=== PATIENT | female | born 1965 | race Two or more races ===

== ENCOUNTER 2017-02-24 08:56 | Inpatient (IN) | payer MEDICAID ==
[~2017-02-24] VITALS: Ht 154.9 cm; Wt 102.0 kg
[~2017-02-24 08:56] MED LIST: METO25TA62 PO
[2017-02-24 10:36] LABS: Albumin 3.4 g/dL (3.4-5.0); Alkaline Phosphatase 85 U/L (45-117); Anion Gap 7 (5-15); Aspartate Aminotransferase 79 U/L (15-37); BUN/Creatinine Ratio 8.7; Bilirubin, Total 1.4 mg/dL (0.2-1.0); Blood Urea Nitrogen 6 mg/dL (7-18); Calcium 8.8 mg/dL (8.5-10.1); Carbon Dioxide 28 mmol/L (21-32); Chloride 102 mmol/L (98-107); GFR African American 115 mL/min; GFR Non-African American 95 mL/min; Glucose 137 mg/dL (74-106); Magnesium 2.1 mg/dL (1.6-2.6); Potassium 3.9 mmol/L (3.5-5.1); Sodium 137 mmol/L (136-145); Total Protein 7.8 g/dL (6.4-8.2)
[2017-02-24 10:37] LABS: Basophils # (auto) 0 uL; Basophils % (auto) 0.4 % (0.0-2.0); Eosinophils # (auto) 0.2 uL; Eosinophils % (auto) 2.2 % (0.0-7.0); Hematocrit 47.2 % (36.0-46.0); Hemoglobin 16.2 g/dL (12.2-16.2); Lymphocytes # (auto) 1.9 uL; Lymphocytes % (auto) 23.7 % (10.0-50.0); Mean Corpuscular Hemoglobin 31.9 pg (28.0-32.0); Mean Corpuscular Hgb Conc. 34.3 g/dL (32.0-36.0); Mean Corpuscular Volume 93.1 fL (80.0-100.0); Mean Platelet Volume 9.2 fL (7.4-10.4); Monocytes # (auto) 0.5 uL; Monocytes % (auto) 6.1 % (0.0-12.0); Neutrophils # (auto) 5.4 uL; Neutrophils % (auto) 67.6 % (37.0-80.0); Platelet Count (auto) 254 10^3/uL (140-450); Red Cell Distribution Width 13.5 % (11.6-16.0); White Blood Cell 8.1 10^3/uL (4.4-10.8)
[2017-02-24] MEDS ORDERED: ASPirin 81 mg TAB PO ONE (10:45)
[2017-02-24] MEDS ORDERED: MORPHINE SULFATE 4 MG/ML SYRG IV ONE (10:45)
[2017-02-24] MEDS ORDERED: ONDANSETRON HCL 4 MG/2 ML VIAL IV ONE (10:45)
[2017-02-24] MEDS ORDERED: cloNIDine HCL 0.1 MG TAB PO ONE (10:45)
[2017-02-24 12:21] LABS: B-Type Natriuretic Peptide 62.02 pg/mL (0-100)
[2017-02-24 12:28] LABS: Temperature: 22.1 C (20.0-25.0)
[2017-02-24] MEDS ORDERED: LORazepam 0.5 MG TAB PO PRN (13:00)
[2017-02-24] MEDS ORDERED: MORPHINE SULF INJ 2 MG/ML SYRINGE 1ML IV PRN ×2 (13:00)
[2017-02-24] MEDS ORDERED: PROMETHAZINE HCL 25 MG/ML 1ML IV PRN (13:00)
[2017-02-24] MEDS ORDERED: NITROGLYCERIN 0.4 MG SL TAB SL PRN (13:00)
[2017-02-24] MEDS ORDERED: ACETAMINOPHEN 500 MG TAB PO PRN (13:00)
[2017-02-24] MEDS ORDERED: TEMAZEPAM 15 MG CAP PO PRN (13:00)
[2017-02-24] MEDS ORDERED: THIAMINE HCL 100 MG/ML 2ML VIAL IV ONE (13:00)
[2017-02-24] MEDS ORDERED: HYDROcodone-ACET 5/325MG TAB PO PRN (13:00)
[2017-02-24] MEDS ORDERED: chlordiazePOXIDE HCL 5 MG CAP PO PRN (13:00)
[2017-02-24] MEDS ORDERED: LACTULOSE 20Gm/30ML SOLN PO PRN (13:00)
[2017-02-24 13:52] LABS: INR 0.98 (0.9-1.15); Partial Thromboplastin Time 27.9 sec (22.64-33.71); Prothrombin Time 10.7 sec (9.37-12.3)
[2017-02-24] MEDS: SODIUM CHLORIDE 0.9% 1,000 ML IV SCH (13:57)
[2017-02-24] MEDS: PANTOPRAZOLE 40 MG TAB PO SCH (14:05)
[2017-02-24] MEDS: ENOXAPARIN SOD 40 MG/0.4 ML SYRINGE SC SCH (14:05)
[2017-02-24] MEDS: NITROGLYCERIN 0.2MG/HR TOPICAL PATCH TD SCH (14:13)
[2017-02-24 17:01] VITALS: BP 137/79
[2017-02-24 17:24] LABS: Urine RBC None Seen /hpf (0 - 4)
[2017-02-24 17:43] LABS: Urine Bilirubin Negative (Negative); Urine Blood Negative /uL (Negative); Urine Color Yellow (Yellow); Urine Glucose Normal (Normal); Urine Ketone Negative (Negative); Urine Nitrite Negative (Negative); Urine Squamous Epithelial Cell FEW /hpf (<5); Urine Urobilinogen Normal (Negative); Urine pH 6.5 (5.0-8.0)
[2017-02-24] MEDS ORDERED: ZOLP10TA PO (17:48)
[2017-02-24] MEDS ORDERED: ALPR1TAB2 PO (17:48)
[2017-02-24 18:30] VITALS: BP 137/79
[2017-02-24 20:00] VITALS: BP 123/77
[2017-02-24 22:00] VITALS: BP 123/77
[2017-02-24] MEDS: METOPROLOL TARTRATE 25 MG TAB PO SCH (22:00)
[2017-02-24] MEDS: ATORVASTATIN 20 MG TAB PO SCH (22:16)
[2017-02-25] VITALS (7 sets, daily range): BP systolic 116–179; BP diastolic 66–97
[2017-02-25] MEDS: SODIUM CHLORIDE 0.9% 1,000 ML IV SCH ×2 (02:00→15:41)
[2017-02-25 06:24] LABS: Cholesterol 185 mg/dL (< 200); HDL Cholesterol 29 mg/dL (40-59); LDL Cholesterol 124 mg/dL (< 100); Triglycerides 226 mg/dL (< 150)
[2017-02-25] MEDS: METOPROLOL TARTRATE 25 MG TAB PO SCH ×3 (10:00→21:34)
[2017-02-25] MEDS: ASPirin 81 mg TAB PO SCH (10:07)
[2017-02-25] MEDS: PANTOPRAZOLE 40 MG TAB PO SCH (10:07)
[2017-02-25] MEDS: ENOXAPARIN SOD 40 MG/0.4 ML SYRINGE SC SCH (10:07)
[2017-02-25] MEDS: THIAMINE HCL 100 MG/ML 2ML VIAL IV SCH (10:09)
[2017-02-25] MEDS: NITROGLYCERIN 0.2MG/HR TOPICAL PATCH TD SCH (10:10)
[2017-02-25] MEDS ORDERED: ENALAPRILAT 1.25 MG/ML-1ML VIAL IV ONE (15:30)
[2017-02-25] MEDS: ATORVASTATIN 20 MG TAB PO SCH (21:34)
[2017-02-25] MEDS: ENALAPRILAT 1.25 MG/ML-1ML VIAL IV PRN (21:35)
[2017-02-26] VITALS (7 sets, daily range): BP systolic 160–189; BP diastolic 65–103
[2017-02-26] MEDS: ENALAPRILAT 1.25 MG/ML-1ML VIAL IV PRN ×4 (03:50→23:40)
[2017-02-26] MEDS: SODIUM CHLORIDE 0.9% 1,000 ML IV SCH ×2 (04:58→18:18)
[2017-02-26 06:30] LABS: BUN/Creatinine Ratio 14.1; Calcium 8.7 mg/dL (8.5-10.1); Potassium 4.1 mmol/L (3.5-5.1)
[2017-02-26] MEDS: METOPROLOL TARTRATE 25 MG TAB PO SCH ×2 (10:00→21:39)
[2017-02-26] MEDS: PANTOPRAZOLE 40 MG TAB PO SCH (10:09)
[2017-02-26] MEDS: THIAMINE HCL 100 MG/ML 2ML VIAL IV SCH (10:10)
[2017-02-26] MEDS: ASPirin 81 mg TAB PO SCH (10:10)
[2017-02-26] MEDS: ENOXAPARIN SOD 40 MG/0.4 ML SYRINGE SC SCH (10:10)
[2017-02-26] MEDS: NITROGLYCERIN 0.2MG/HR TOPICAL PATCH TD SCH (10:11)
[2017-02-26] MEDS ORDERED: NIFEdipine ER 30 MG TAB PO ONE (19:30)
[2017-02-26] MEDS: ATORVASTATIN 20 MG TAB PO SCH (21:38)
[2017-02-27 05:35] VITALS: BP 136/99
[2017-02-27 05:45] VITALS: BP 161/89
[2017-02-27 09:00] VITALS: BP 154/98
[2017-02-27] MEDS ORDERED: NIFEdipine ER 30 MG TAB PO SCH (10:00)
[2017-02-27] MEDS: PANTOPRAZOLE 40 MG TAB PO SCH (10:50)
[2017-02-27] MEDS: THIAMINE HCL 100 MG/ML 2ML VIAL IV SCH (10:50)
[2017-02-27] MEDS: ASPirin 81 mg TAB PO SCH (10:51)
[2017-02-27] MEDS: METOPROLOL TARTRATE 25 MG TAB PO SCH (10:51)
[2017-02-27] MEDS: ENOXAPARIN SOD 40 MG/0.4 ML SYRINGE SC SCH (10:51)
[2017-02-27] MEDS: NITROGLYCERIN 0.2MG/HR TOPICAL PATCH TD SCH (10:52)
[2017-02-27 13:00] VITALS: BP 114/87
[2017-02-27 13:27] VITALS: BP 154/98
== END 2017-02-27 15:11 | disposition home or self-care (01) | DRG 199 ==
LOC: ER 08:56 → TELE 08:57 → TELE-E-ADS 16:49 → TELE-CENTR 19:05
PROVIDERS: ADMIT Internal Medicine; ATTEND Internal Medicine
DX: I10 Essential (primary) hypertension (principal); Z68.41 Body mass index [BMI] 40.0-44.9, adult; E66.01 Morbid (severe) obesity due to excess calories; Z86.73 Personal history of transient ischemic attack (TIA), and cerebral infarction without residual deficits; Z82.0 Family history of epilepsy and other diseases of the nervous system; Z82.49 Family history of ischemic heart disease and other diseases of the circulatory system; Z83.3 Family history of diabetes mellitus; Z91.14 Patient's other noncompliance with medication regimen; R07.89 Other chest pain; Z90.49 Acquired absence of other specified parts of digestive tract; Z71.89 Other specified counseling; Z80.0 Family history of malignant neoplasm of digestive organs; R42 Dizziness and giddiness; F41.9 Anxiety disorder, unspecified; J32.0 Chronic maxillary sinusitis
CPT/HCPCS: 36415; 70450; 71020; 80048; 80053; 80061; 80307; 81001; 82550; 82607; 82746; 83735; 83880; 84443; 84484; 85025; 85379; 85610; 85652; 85730; 86141; 93005; 93306; 93886; 93971; 96374; 99291; J2405

== ENCOUNTER 2019-06-29 23:22 | Emergency (ER) | payer MEDICAID ==
[~2019-06-29] VITALS: Ht 154.9 cm; Wt 113.4 kg
[~2019-06-29 23:22] MED LIST changes: +ALPR1TAB2 PO; -METO25TA62 PO; +ZOLP10TA PO
[2019-06-29] MEDS ORDERED: cloNIDine HCL 0.1 MG TAB ONE (23:36)
[2019-06-30] MEDS ORDERED: cloNIDine HCL 0.1 MG TAB PO ONE
[2019-06-30 00:23] LABS: Basophils # (auto) 0.1 uL; Basophils % (auto) 0.8 % (0.0-2.0); Eosinophils # (auto) 0.1 uL; Eosinophils % (auto) 1.8 % (0.0-7.0); Hemoglobin 16.9 g/dL (12.2-16.2); Lymphocytes # (auto) 2.5 uL; Lymphocytes % (auto) 33.8 % (10.0-50.0); Mean Corpuscular Hemoglobin 33.5 pg (28.0-32.0); Mean Corpuscular Hgb Conc. 34.5 g/dL (32.0-36.0); Monocytes # (auto) 0.4 uL; Monocytes % (auto) 5.9 % (0.0-12.0); Neutrophils # (auto) 4.3 uL; Neutrophils % (auto) 57.7 % (37.0-80.0); Nucleated Red Blood Cells % 0.1 %; Platelet Count (auto) 233 10^3/uL (140-450); Red Blood Cells 5.05 10^6/uL (4.0-5.20); Red Cell Distribution Width 13.3 % (11.8-14.3); White Blood Cell 7.4 10^3/uL (4.4-10.8)
[2019-06-30 00:39] LABS: INR 0.95 (0.9-1.15); Partial Thromboplastin Time 26.1 sec (23.64-32.05)
[2019-06-30] MEDS ORDERED: ASPirin 81 mg TAB PO ONE (00:45)
[2019-06-30 00:56] LABS: Potassium 3.9 mmol/L (3.5-5.1); Sodium 137 mmol/L (136-145)
[2019-06-30 00:57] LABS: Alkaline Phosphatase 90 U/L (45-117); Anion Gap 14 (5-15); BUN/Creatinine Ratio 12.9; Blood Urea Nitrogen 9 mg/dL (7-18); Carbon Dioxide 20 mmol/L (21-32); Chloride 103 mmol/L (98-107); GFR African American 112 mL/min; GFR Non-African American 93 mL/min; Glucose 135 mg/dL (74-106)
[2019-06-30 00:58] LABS: Alanine Aminotransferase 58 U/L (13-56); Albumin 3.2 g/dL (3.4-5.0); Aspartate Aminotransferase 68 U/L (15-37); Bilirubin, Total 0.7 mg/dL (0.2-1.0); Calcium 8.8 mg/dL (8.5-10.1); Magnesium 2.1 mg/dL (1.6-2.6); Total Protein 8.1 g/dL (6.4-8.2)
[2019-06-30 02:46] LABS: Urine Bacteria NONE SEEN /hpf (None Seen); Urine Blood Negative /uL (Negative); Urine Specific Gravity 1.011 (1.001-1.035); Urine WBC <1 /hpf (0 - 5)
[2019-06-30 03:32] LABS: Amphetamine Screen, Urine NEGATIVE (NEGATIVE); Barbiturate Scree,Urine NEGATIVE (NEGATIVE); Benzodiazephine Screen, Urine NEGATIVE (NEGATIVE); Cannabinoid Screen, Urine POSITIVE (NEGATIVE); Cocaine Screen, Urine NEGATIVE (NEGATIVE); Opiate Scree,Urine NEGATIVE (NEGATIVE); Phencyclidine Screen, Urine NEGATIVE (NEGATIVE)
[2019-06-30] MEDS ORDERED: LABETALOL HCL 5 MG/ML ML 20ML VIAL IV ONE (08:00)
[2019-06-30] MEDS ORDERED: hydrALAZINE HCL 20 MG/ML VL IV ONE (08:00)
[2019-06-30 14:29] VITALS: BP 155/100
== END 2019-06-30 17:27 | disposition home or self-care (01) ==
LOC: ER 23:29
DX: R07.9 Chest pain, unspecified (principal); I10 Essential (primary) hypertension; F10.10 Alcohol abuse, uncomplicated; F12.90 Cannabis use, unspecified, uncomplicated; R74.8 Abnormal levels of other serum enzymes; E46 Unspecified protein-calorie malnutrition; R73.9 Hyperglycemia, unspecified; J45.909 Unspecified asthma, uncomplicated; Z86.73 Personal history of transient ischemic attack (TIA), and cerebral infarction without residual deficits; Z90.49 Acquired absence of other specified parts of digestive tract; Z79.899 Other long term (current) drug therapy; Z53.29 Procedure and treatment not carried out because of patient's decision for other reasons
CPT/HCPCS: 36415; 71046; 80053; 80307; 81001; 83735; 84484; 85025; 85610; 85730; 93005; 94761; 96374; 96375; 99284; J0360

== ENCOUNTER 2019-12-29 16:31 | Inpatient (IN) | payer MEDICAID ==
[~2019-12-29] VITALS: Ht 154.9 cm; Wt 105.0 kg
[2019-12-29 17:16] LABS: Eosinophils # (auto) 0.1 10 ^3/uL (0-0.8); Monocytes # (auto) 0.4 10 ^3/uL (0-1.3)
[2019-12-29 17:32] LABS: Hemoglobin 16.3 g/dL (12.2-16.2); White Blood Cell 8.7 10^3/uL (4.4-10.8)
[2019-12-29 17:33] LABS: Albumin 3.5 g/dL (3.4-5.0); Anion Gap 11 (5-15); BUN/Creatinine Ratio 20.7; Blood Urea Nitrogen 12 mg/dL (7-18); Calcium 9.3 mg/dL (8.5-10.1); Carbon Dioxide 20 mmol/L (21-32); Chloride 102 mmol/L (98-107); GFR African American 139 mL/min; GFR Non-African American 115 mL/min; Glucose 138 mg/dL (74-106); Potassium 3.3 mmol/L (3.5-5.1); Sodium 133 mmol/L (136-145)
[2019-12-29 17:34] LABS: Basophils # (auto) 0.1 10 ^3/uL (0-0.2); Basophils % (auto) 0.6 % (0.0-2.0); Eosinophils % (auto) 1.4 % (0.0-7.0); Hematocrit 45.2 % (36.0-46.0); Lymphocytes # (auto) 1.8 10 ^3/uL (0.4-5.4); Lymphocytes % (auto) 20.3 % (10.0-50.0); Mean Corpuscular Hemoglobin 35.2 pg (28.0-32.0); Mean Corpuscular Hgb Conc. 36.1 g/dL (32.0-36.0); Mean Corpuscular Volume 97.5 fL (80.0-100.0); Monocytes % (auto) 4.6 % (0.0-12.0); Neutrophils # (auto) 6.4 10 ^3/uL (1.6-8.6); Neutrophils % (auto) 73.1 % (37.0-80.0); Nucleated Red Blood Cells % 0.1 %; Platelet Count (auto) 233 10^3/uL (140-450); Red Blood Cells 4.64 10^6/uL (4.0-5.20); Red Cell Distribution Width 12.8 % (11.8-14.3)
[2019-12-29 17:42] LABS: Alanine Aminotransferase 45 U/L (13-56); Alkaline Phosphatase 88 U/L (45-117); Aspartate Aminotransferase 38 U/L (15-37); Bilirubin, Total 1.3 mg/dL (0.2-1.0); Total Protein 8.2 g/dL (6.4-8.2)
[2019-12-29] MEDS ORDERED: ONDANSETRON HCL 4 MG/2 ML VIAL IV ONE (18:30)
[2019-12-29] MEDS ORDERED: MORPHINE SULF INJ 2 MG/ML SYRINGE 1ML IV ONE (18:30)
[2019-12-29] MEDS ORDERED: ASPirin 81 mg TAB PO ONE ×2 (18:30→19:15)
[2019-12-29] MEDS ORDERED: diphenhdrAMINE HCL 50 MG/1 ML VL IV ONE (19:30)
[2019-12-29 19:42] LABS: INR 1.05 (0.9-1.15); Partial Thromboplastin Time 27.8 sec (23.64-32.05)
[2019-12-29] MEDS ORDERED: cloNIDine HCL 0.1 MG TAB PO ONE (20:30)
[2019-12-29] MEDS ORDERED: cloNIDine HCL 0.1 MG TAB PO PRN (21:00)
[2019-12-29] MEDS ORDERED: ALBUTEROL SULF 2.5 MG/0.5ML(0.5%) NEB SOLN NEB PRN (21:00)
[2019-12-29] MEDS ORDERED: IPRATROPIUM BROM 0.5 MG/2.5ML INH SOL NEB PRN (21:00)
[2019-12-29] MEDS ORDERED: DEXTROSE (50%) 50ML SYRG IV PRN (21:00)
[2019-12-29] MEDS ORDERED: NITROGLYCERIN 0.4 MG SL TAB SL PRN (21:00)
[2019-12-29] MEDS ORDERED: MORPHINE SULF INJ 2 MG/ML SYRINGE 1ML IV PRN (21:00)
[2019-12-29] MEDS ORDERED: cefTRIAXone 1GM/50ML D5W 50 ML IV SCH (21:00)
[2019-12-29] MEDS ORDERED: MORPHINE SULFATE 4 MG/ML SYR/VIAL IV PRN (21:00)
[2019-12-29] MEDS ORDERED: POTASSIUM CHL 20MEQ/100ML 100 ML IV ONE (21:15)
[2019-12-29] MEDS: CARVEDILOL 3.125 MG TAB PO SCH (21:50)
[2019-12-29 22:57] VITALS: BP 163/104
[2019-12-29 22:58] VITALS: BP 172/95
[2019-12-29 23:00] VITALS: BP 163/104
[2019-12-29] MEDS: ACCU-CHEK COMFORT CURVE STRIP VI SCH (23:39)
[2019-12-29] MEDS: InsuLIN REG 1unit/0.01ml Soln (100units/ml) SC SCH (23:40)
[2019-12-30] MEDS: ZOLPIDEM TARTRATE 5 MG TAB PO PRN ×2 (00:45→21:45)
[2019-12-30] MEDS: HYDROcodone-ACET 5/325MG TAB PO PRN ×3 (00:46→20:06)
[2019-12-30] MEDS: ACCU-CHEK COMFORT CURVE STRIP VI SCH ×3 (03:54→11:27)
[2019-12-30] MEDS: InsuLIN REG 1unit/0.01ml Soln (100units/ml) SC SCH ×3 (03:55→11:27)
[2019-12-30 05:33] VITALS: BP 167/102
[2019-12-30 06:37] LABS: Hemoglobin 15.2 g/dL (12.2-16.2); Lymphocytes # (auto) 1.5 10 ^3/uL (0.4-5.4); Mean Corpuscular Hgb Conc. 35.3 g/dL (32.0-36.0); Monocytes # (auto) 0.5 10 ^3/uL (0-1.3); Monocytes % (auto) 6.1 % (0.0-12.0)
[2019-12-30 06:40] LABS: Basophils # (auto) 0.1 10 ^3/uL (0-0.2); Basophils % (auto) 0.7 % (0.0-2.0); Eosinophils # (auto) 0.3 10 ^3/uL (0-0.8); Eosinophils % (auto) 3.1 % (0.0-7.0); Hematocrit 43.1 % (36.0-46.0); Mean Corpuscular Hemoglobin 34.5 pg (28.0-32.0); Mean Corpuscular Volume 97.8 fL (80.0-100.0); Neutrophils # (auto) 6.2 10 ^3/uL (1.6-8.6); Neutrophils % (auto) 72.1 % (37.0-80.0); Nucleated Red Blood Cells % 0.1 %; Platelet Count (auto) 217 10^3/uL (140-450); Red Blood Cells 4.41 10^6/uL (4.0-5.20); Red Cell Distribution Width 12.7 % (11.8-14.3); White Blood Cell 8.6 10^3/uL (4.4-10.8)
[2019-12-30 06:52] LABS: Potassium 3.2 mmol/L (3.5-5.1)
[2019-12-30 07:17] LABS: BUN/Creatinine Ratio 22.4; Calcium 9.2 mg/dL (8.5-10.1)
[2019-12-30 09:00] VITALS: BP 142/87
[2019-12-30] MEDS: ASPirin 81 mg TAB PO SCH (09:40)
[2019-12-30] MEDS: LISINOPRIL 20 MG TAB PO SCH (09:40)
[2019-12-30] MEDS: CARVEDILOL 3.125 MG TAB PO SCH ×2 (09:40→21:13)
[2019-12-30] MEDS ORDERED: CLOPIDOGREL BISULFATE 75 MG TAB PO SCH (10:00)
[2019-12-30] MEDS ORDERED: diphenhdrAMINE HCL 50 MG/1 ML VL IV ONE (12:00)
[2019-12-30 13:00] VITALS: BP 106/67
[2019-12-30] MEDS ORDERED: POTASSIUM CHL 20 Meq TABLET PO ONE (15:00)
[2019-12-30] MEDS ORDERED: MORPHINE SULF INJ 2 MG/ML SYRINGE 1ML IV PRN (15:00)
[2019-12-30 16:50] VITALS: BP 122/70
[2019-12-30] MEDS: ATORVASTATIN 20 MG TAB PO SCH (17:53)
[2019-12-30] MEDS: AMOXICILLIN/CLAVUL 875 MG TAB PO SCH (21:12)
[2019-12-30] MEDS: diphenhdrAMINE HCL 25 MG CAP PO PRN (21:45)
[2019-12-30 22:00] VITALS: BP 142/82
[2019-12-31] VITALS (8 sets, daily range): BP systolic 132–180; BP diastolic 70–116
[2019-12-31] MEDS: LORazepam 0.5 MG TAB PO PRN ×2 (02:55→20:40)
[2019-12-31] MEDS: HYDROcodone-ACET 5/325MG TAB PO PRN ×5 (02:56→22:18)
[2019-12-31 05:44] LABS: Magnesium 2.1 mg/dL (1.6-2.6); Potassium 3.8 mmol/L (3.5-5.1)
[2019-12-31] MEDS ORDERED: ADENOSINE 90 MG in GIVE UN-DILUTED 0 ML IV STA (08:27)
[2019-12-31] MEDS: diphenhdrAMINE HCL 25 MG CAP PO PRN ×3 (08:45→22:19)
[2019-12-31] MEDS: CARVEDILOL 3.125 MG TAB PO SCH ×2 (11:08→21:31)
[2019-12-31] MEDS: LISINOPRIL 20 MG TAB PO SCH (11:08)
[2019-12-31] MEDS: ASPirin 81 mg TAB PO SCH (11:08)
[2019-12-31] MEDS: AMOXICILLIN/CLAVUL 875 MG TAB PO SCH ×2 (11:08→21:29)
[2019-12-31] MEDS ORDERED: HAL5T PO (11:57)
[2019-12-31] MEDS ORDERED: METO25TA5 PO (11:57)
[2019-12-31] MEDS ORDERED: SIMV-8 PO (11:57)
[2019-12-31] MEDS ORDERED: HCTZ25T PO (11:57)
[2019-12-31] MEDS ORDERED: OMEP20TA PO (11:57)
[2019-12-31] MEDS ORDERED: CHOL20007 PO (11:57)
[2019-12-31] MEDS ORDERED: METF-370 PO (11:57)
[2019-12-31] MEDS ORDERED: LOSA-69 PO (11:57)
[2019-12-31] MEDS ORDERED: LEVOTHYROXINE SODIUM 50 MCG TAB PO ONE (13:00)
[2019-12-31] MEDS ORDERED: HCTZ 25 MG TAB PO ONE (13:00)
[2019-12-31] MEDS ORDERED: LOSARTAN POTASSIUM 50 MG TAB PO ONE (13:00)
[2019-12-31 13:15] LABS: Free T4 (Free Thyroxine) 1.05 ng/dL (0.89-1.76)
[2019-12-31 13:36] LABS: Free T3 3.25 pg/mL (2.3-4.2)
[2019-12-31] MEDS: hydrALAZINE HCL 20 MG/ML VL IV PRN (16:00)
[2019-12-31] MEDS: ATORVASTATIN 20 MG TAB PO SCH (17:25)
[2019-12-31] MEDS: HYDROCORTONE 1% TOPICAL CREAM 30 GM TUBE TOP PRN (18:38)
[2019-12-31 18:43] LABS: Urine WBC None Seen /hpf (0 - 5)
[2019-12-31 18:52] LABS: Urine Bacteria NONE SEEN /hpf (None Seen); Urine Blood Negative /uL (Negative); Urine Specific Gravity 1.011 (1.001-1.035)
[2019-12-31] MEDS ORDERED: HYDROCORTONE 1% TOPICAL CREAM 30 GM TUBE TOP SCH (22:00)
[2019-12-31] MEDS: ZOLPIDEM TARTRATE 5 MG TAB PO PRN (22:18)
[2020-01-01] VITALS (7 sets, daily range): BP systolic 100–163; BP diastolic 67–107
[2020-01-01] MEDS: hydrALAZINE HCL 20 MG/ML VL IV PRN (01:46)
[2020-01-01] MEDS: HYDROcodone-ACET 5/325MG TAB PO PRN ×2 (02:27→15:33)
[2020-01-01] MEDS: HYDROCORTONE 1% TOPICAL CREAM 30 GM TUBE TOP PRN ×2 (02:42→15:33)
[2020-01-01] MEDS: LEVOTHYROXINE SODIUM 50 MCG TAB PO SCH (06:42)
[2020-01-01] MEDS: AMOXICILLIN/CLAVUL 875 MG TAB PO SCH ×2 (10:08→21:32)
[2020-01-01] MEDS: ASPirin 81 mg TAB PO SCH (10:10)
[2020-01-01] MEDS: ONDANSETRON HCL 4 MG/2 ML VIAL IV PRN ×2 (10:12→18:50)
[2020-01-01] MEDS: HCTZ 25 MG TAB PO SCH (10:13)
[2020-01-01] MEDS: CARVEDILOL 3.125 MG TAB PO SCH ×2 (10:14→21:35)
[2020-01-01] MEDS: LOSARTAN POTASSIUM 50 MG TAB PO SCH (10:16)
[2020-01-01] MEDS: ATORVASTATIN 20 MG TAB PO SCH (18:28)
[2020-01-01] MEDS: LORazepam 0.5 MG TAB PO PRN (20:41)
[2020-01-01] MEDS: ZOLPIDEM TARTRATE 5 MG TAB PO PRN (21:32)
[2020-01-02] VITALS (8 sets, daily range): BP systolic 129–159; BP diastolic 75–95
[2020-01-02] MEDS ORDERED: SODIUM CHLORIDE 0.9% 1,000 ML IV SCH (00:01)
[2020-01-02 05:28] LABS: Basophils # (auto) 0.1 10 ^3/uL (0-0.2); Basophils % (auto) 0.7 % (0.0-2.0); Eosinophils # (auto) 0.3 10 ^3/uL (0-0.8); Eosinophils % (auto) 2.4 % (0.0-7.0); Hematocrit 43.8 % (36.0-46.0); Lymphocytes # (auto) 1.3 10 ^3/uL (0.4-5.4); Lymphocytes % (auto) 11.3 % (10.0-50.0); Mean Corpuscular Hgb Conc. 34.1 g/dL (32.0-36.0); Mean Corpuscular Volume 99.7 fL (80.0-100.0); Monocytes # (auto) 0.7 10 ^3/uL (0-1.3); Monocytes % (auto) 5.6 % (0.0-12.0); Neutrophils # (auto) 9.4 10 ^3/uL (1.6-8.6); Platelet Count (auto) 234 10^3/uL (140-450); Red Cell Distribution Width 12.7 % (11.8-14.3); White Blood Cell 11.7 10^3/uL (4.4-10.8)
[2020-01-02 05:49] LABS: Calcium 9.4 mg/dL (8.5-10.1); INR 1.03 (0.9-1.15); Partial Thromboplastin Time 27.6 sec (23.64-32.05); Potassium 3.4 mmol/L (3.5-5.1)
[2020-01-02 05:51] LABS: BUN/Creatinine Ratio 16.7
[2020-01-02] MEDS: LORazepam 0.5 MG TAB PO PRN (07:19)
[2020-01-02] MEDS: LEVOTHYROXINE SODIUM 50 MCG TAB PO SCH (07:19)
[2020-01-02] MEDS: ONDANSETRON HCL 4 MG/2 ML VIAL IV PRN (08:09)
[2020-01-02] MEDS ORDERED: LIDOCAINE 2%HCL (LOCAL ANESTH.) INJ 20ML MDV ONE (08:36)
[2020-01-02] MEDS ORDERED: IODIXANOL 320MG/ML 100ML BTL IV ONE ×2 (08:36→10:09)
[2020-01-02] MEDS ORDERED: ANGIOMAX 250 MG VIAL IV ONE (08:59)
[2020-01-02] MEDS ORDERED: HEPARIN SODIUM (PORCINE) 5000 UNITS/ML 1ML VIAL ONE (08:59)
[2020-01-02] MEDS ORDERED: VERAPAMIL 2.5MG/ML INJ 2ML VIAL IV ONE (08:59)
[2020-01-02] MEDS ORDERED: fentaNYL CITRATE 100 MCG/2 ML VL ONE (09:00)
[2020-01-02] MEDS ORDERED: MIDAZOLAM HCL 1MG/1ML-2 ML VIAL ONE (09:00)
[2020-01-02] MEDS ORDERED: diphenhdrAMINE HCL 50 MG/1 ML VL ONE (09:27)
[2020-01-02] MEDS ORDERED: SODIUM CHL 0.9% 0 ML ONE (10:10)
[2020-01-02] MEDS: LOSARTAN POTASSIUM 50 MG TAB PO SCH (12:35)
[2020-01-02] MEDS: HCTZ 25 MG TAB PO SCH (12:36)
[2020-01-02] MEDS: CARVEDILOL 3.125 MG TAB PO SCH ×2 (12:36→22:02)
[2020-01-02] MEDS: AMOXICILLIN/CLAVUL 875 MG TAB PO SCH ×2 (12:37→22:00)
[2020-01-02] MEDS: ASPirin 81 mg TAB PO SCH (12:37)
[2020-01-02] MEDS ORDERED: DEXTROSE (50%) 50ML SYRG IV PRN (13:00)
[2020-01-02] MEDS ORDERED: POTASSIUM CHL 20 Meq TABLET PO ONE (13:00)
[2020-01-02] MEDS: HYDROcodone-ACET 5/325MG TAB PO PRN ×2 (15:27→22:19)
[2020-01-02] MEDS: ACCU-CHEK COMFORT CURVE STRIP VI SCH ×2 (17:58→22:18)
[2020-01-02] MEDS: ATORVASTATIN 20 MG TAB PO SCH (17:58)
[2020-01-02] MEDS: InsuLIN REG 1unit/0.01ml Soln (100units/ml) SC SCH ×2 (18:21→22:00)
[2020-01-02] MEDS: HYDROCORTONE 1% TOPICAL CREAM 30 GM TUBE TOP PRN (20:00)
[2020-01-02] MEDS: diphenhdrAMINE HCL 25 MG CAP PO PRN (20:00)
[2020-01-02] MEDS ORDERED: ATORVASTATIN 20 MG TAB PO SCH (22:00)
[2020-01-02] MEDS: ZOLPIDEM TARTRATE 5 MG TAB PO PRN (22:00)
[2020-01-03 04:52] VITALS: BP 143/85
[2020-01-03 06:00] LABS: Basophils # (auto) 0 10 ^3/uL (0-0.2); Basophils % (auto) 0.5 % (0.0-2.0); Eosinophils # (auto) 0.3 10 ^3/uL (0-0.8); Hematocrit 43.4 % (36.0-46.0); Lymphocytes # (auto) 1.5 10 ^3/uL (0.4-5.4); Lymphocytes % (auto) 14.2 % (10.0-50.0); Mean Corpuscular Hemoglobin 34.7 pg (28.0-32.0); Mean Corpuscular Hgb Conc. 34.7 g/dL (32.0-36.0); Monocytes # (auto) 0.9 10 ^3/uL (0-1.3); Monocytes % (auto) 8.4 % (0.0-12.0); Neutrophils # (auto) 7.6 10 ^3/uL (1.6-8.6); Neutrophils % (auto) 73.9 % (37.0-80.0); Platelet Count (auto) 215 10^3/uL (140-450); Red Blood Cells 4.34 10^6/uL (4.0-5.20); Red Cell Distribution Width 12.7 % (11.8-14.3); White Blood Cell 10.3 10^3/uL (4.4-10.8)
[2020-01-03 06:17] LABS: BUN/Creatinine Ratio 19.4; Calcium 9.3 mg/dL (8.5-10.1); Magnesium 2.3 mg/dL (1.6-2.6); Potassium 3.5 mmol/L (3.5-5.1)
[2020-01-03] MEDS: LEVOTHYROXINE SODIUM 50 MCG TAB PO SCH (06:19)
[2020-01-03] MEDS: ACCU-CHEK COMFORT CURVE STRIP VI SCH ×4 (06:19→22:00)
[2020-01-03] MEDS: InsuLIN REG 1unit/0.01ml Soln (100units/ml) SC SCH ×4 (06:19→22:00)
[2020-01-03 09:00] VITALS: BP 137/86
[2020-01-03] MEDS: ONDANSETRON HCL 4 MG/2 ML VIAL IV PRN (09:03)
[2020-01-03] MEDS: DOCUSATE SOD 100 MG CAP PO PRN (09:03)
[2020-01-03] MEDS ORDERED: ASPirin 81 mg TAB PO SCH (10:00)
[2020-01-03] MEDS: CLOPIDOGREL BISULFATE 75 MG TAB PO SCH (10:01)
[2020-01-03] MEDS: LOSARTAN POTASSIUM 50 MG TAB PO SCH (10:01)
[2020-01-03] MEDS: AMOXICILLIN/CLAVUL 875 MG TAB PO SCH ×2 (10:02→22:45)
[2020-01-03] MEDS: HCTZ 25 MG TAB PO SCH (10:02)
[2020-01-03] MEDS: CARVEDILOL 3.125 MG TAB PO SCH ×2 (10:03→22:46)
[2020-01-03] MEDS: ASPirin 81 mg TAB PO SCH (10:03)
[2020-01-03] MEDS ORDERED: POTASSIUM CHL 20 Meq TABLET PO ONE (11:30)
[2020-01-03 11:45] LABS: INR 1.01 (0.9-1.15); Partial Thromboplastin Time 27.2 sec (23.64-32.05)
[2020-01-03] MEDS: HYDROcodone-ACET 5/325MG TAB PO PRN ×2 (11:53→22:46)
[2020-01-03 13:00] VITALS: BP 138/94
[2020-01-03 16:56] VITALS: BP 107/67
[2020-01-03] MEDS: ATORVASTATIN 20 MG TAB PO SCH (17:42)
[2020-01-03 22:00] VITALS: BP 111/68
[2020-01-04] MEDS ORDERED: SODIUM CHLORIDE 0.9% 1,000 ML IV SCH (00:01)
[2020-01-04 05:00] VITALS: BP 135/77
[2020-01-04 05:44] LABS: Basophils # (auto) 0.1 10 ^3/uL (0-0.2); Eosinophils # (auto) 0.3 10 ^3/uL (0-0.8); Hemoglobin 15.2 g/dL (12.2-16.2); Monocytes # (auto) 0.7 10 ^3/uL (0-1.3); Monocytes % (auto) 6.9 % (0.0-12.0); Nucleated Red Blood Cells % 0.4 %
[2020-01-04 05:45] LABS: Basophils % (auto) 0.8 % (0.0-2.0); Eosinophils % (auto) 2.8 % (0.0-7.0); Lymphocytes # (auto) 1.5 10 ^3/uL (0.4-5.4); Lymphocytes % (auto) 14.8 % (10.0-50.0); Mean Corpuscular Hemoglobin 34.7 pg (28.0-32.0); Mean Corpuscular Hgb Conc. 35.3 g/dL (32.0-36.0); Mean Corpuscular Volume 98.2 fL (80.0-100.0); Neutrophils # (auto) 7.8 10 ^3/uL (1.6-8.6); Neutrophils % (auto) 74.7 % (37.0-80.0); Platelet Count (auto) 233 10^3/uL (140-450); Red Blood Cells 4.38 10^6/uL (4.0-5.20); Red Cell Distribution Width 12.7 % (11.8-14.3); White Blood Cell 10.4 10^3/uL (4.4-10.8)
[2020-01-04 05:59] LABS: INR 1.05 (0.9-1.15); Partial Thromboplastin Time 26.2 sec (23.64-32.05)
[2020-01-04 06:01] LABS: Calcium 9.8 mg/dL (8.5-10.1)
[2020-01-04 06:03] LABS: BUN/Creatinine Ratio 20.5
[2020-01-04] MEDS: ACCU-CHEK COMFORT CURVE STRIP VI SCH ×4 (06:54→22:07)
[2020-01-04] MEDS: InsuLIN REG 1unit/0.01ml Soln (100units/ml) SC SCH ×4 (06:55→21:54)
[2020-01-04] MEDS: LEVOTHYROXINE SODIUM 50 MCG TAB PO SCH (06:56)
[2020-01-04] MEDS ORDERED: LIDOCAINE 2%HCL (LOCAL ANESTH.) INJ 20ML MDV ONE (07:15)
[2020-01-04] MEDS ORDERED: IOHEXOL 350 MG/ML 100ML IJ ONE ×2 (07:15→09:30)
[2020-01-04] MEDS ORDERED: ANGIOMAX 250 MG VIAL IV ONE ×2 (07:30→09:26)
[2020-01-04] MEDS ORDERED: fentaNYL CITRATE 100 MCG/2 ML VL ONE (07:30)
[2020-01-04] MEDS ORDERED: EPINEPHrine HCL 1 MG/10 ML SYRG ONE (07:31)
[2020-01-04] MEDS ORDERED: MIDAZOLAM HCL 1MG/1ML-2 ML VIAL ONE ×2 (07:31→09:10)
[2020-01-04] MEDS ORDERED: SODIUM CHL 0.9% 50 ML ONE ×2 (07:31→09:26)
[2020-01-04] MEDS ORDERED: HEPARIN SODIUM (PORCINE) 5000 UNITS/ML 1ML VIAL ONE (07:32)
[2020-01-04] MEDS ORDERED: VERAPAMIL 2.5MG/ML INJ 2ML VIAL IV ONE (07:32)
[2020-01-04] MEDS ORDERED: diphenhdrAMINE HCL 50 MG/1 ML VL ONE (08:20)
[2020-01-04] MEDS ORDERED: ATROPINE SULF 1 MG/10ml SYR ONE (08:49)
[2020-01-04] MEDS ORDERED: ASPirin 81 mg TAB ONE (09:45)
[2020-01-04] MEDS ORDERED: CLOPIDOGREL 300 MG TAB ONE (09:45)
[2020-01-04] MEDS: CLOPIDOGREL BISULFATE 75 MG TAB PO SCH (10:00)
[2020-01-04] MEDS: CARVEDILOL 3.125 MG TAB PO SCH ×2 (10:00→21:41)
[2020-01-04] MEDS: HCTZ 25 MG TAB PO SCH (10:00)
[2020-01-04] MEDS: LOSARTAN POTASSIUM 50 MG TAB PO SCH (10:00)
[2020-01-04] MEDS: ASPirin 81 mg TAB PO SCH (10:00)
[2020-01-04] MEDS: AMOXICILLIN/CLAVUL 875 MG TAB PO SCH ×2 (10:00→21:40)
[2020-01-04] MEDS: ACETAMINOPHEN 325 MG TAB PO PRN (11:16)
[2020-01-04 13:00] VITALS: BP 137/88
[2020-01-04] MEDS ORDERED: FAMOTIDINE 20 MG TAB PO ONE (13:30)
[2020-01-04] MEDS: ALUM & MAG HYDROX-SIMETH LIQ(MAALOX) 30 ML PO PRN (14:23)
[2020-01-04 16:30] VITALS: BP 133/79
[2020-01-04] MEDS: ATORVASTATIN 20 MG TAB PO SCH (17:37)
[2020-01-04] MEDS: HYDROcodone-ACET 5/325MG TAB PO PRN (20:16)
[2020-01-04] MEDS ORDERED: LORazepam 2MG/ML-1ML VIAL IV PRN (21:15)
[2020-01-04 21:38] VITALS: BP 141/90
[2020-01-04] MEDS: ZOLPIDEM TARTRATE 5 MG TAB PO PRN (21:51)
[2020-01-04 22:38] VITALS: BP 141/90
[2020-01-05 04:50] VITALS: BP 157/77
[2020-01-05] MEDS: hydrALAZINE HCL 20 MG/ML VL IV PRN (05:03)
[2020-01-05 06:03] LABS: Basophils # (auto) 0.1 10 ^3/uL (0-0.2); Lymphocytes # (auto) 1.3 10 ^3/uL (0.4-5.4); Monocytes # (auto) 0.8 10 ^3/uL (0-1.3); Monocytes % (auto) 8.3 % (0.0-12.0); Neutrophils # (auto) 7.1 10 ^3/uL (1.6-8.6); Nucleated Red Blood Cells % 0.1 %
[2020-01-05 06:06] LABS: Basophils % (auto) 0.6 % (0.0-2.0); Eosinophils # (auto) 0.3 10 ^3/uL (0-0.8); Eosinophils % (auto) 2.9 % (0.0-7.0); Hematocrit 42.3 % (36.0-46.0); Hemoglobin 14.9 g/dL (12.2-16.2); Lymphocytes % (auto) 13.8 % (10.0-50.0); Mean Corpuscular Hemoglobin 34.8 pg (28.0-32.0); Mean Corpuscular Hgb Conc. 35.4 g/dL (32.0-36.0); Mean Corpuscular Volume 98.5 fL (80.0-100.0); Neutrophils % (auto) 74.4 % (37.0-80.0); Platelet Count (auto) 231 10^3/uL (140-450); Red Blood Cells 4.29 10^6/uL (4.0-5.20); Red Cell Distribution Width 12.2 % (11.8-14.3); White Blood Cell 9.6 10^3/uL (4.4-10.8)
[2020-01-05 06:21] LABS: Calcium 9.2 mg/dL (8.5-10.1); Potassium 3.7 mmol/L (3.5-5.1)
[2020-01-05 06:23] LABS: BUN/Creatinine Ratio 17.9
[2020-01-05] MEDS: InsuLIN REG 1unit/0.01ml Soln (100units/ml) SC SCH ×4 (06:33→22:00)
[2020-01-05] MEDS: LEVOTHYROXINE SODIUM 50 MCG TAB PO SCH (06:33)
[2020-01-05] MEDS: ACCU-CHEK COMFORT CURVE STRIP VI SCH ×4 (06:34→21:59)
[2020-01-05 08:00] VITALS: BP 157/77
[2020-01-05 08:04] VITALS: BP 163/106
[2020-01-05] MEDS: ASPirin 81 mg TAB PO SCH (11:48)
[2020-01-05] MEDS: CARVEDILOL 3.125 MG TAB PO SCH ×2 (11:49→21:57)
[2020-01-05] MEDS: LOSARTAN POTASSIUM 50 MG TAB PO SCH (11:49)
[2020-01-05] MEDS: HCTZ 25 MG TAB PO SCH (11:50)
[2020-01-05] MEDS: FAMOTIDINE 20 MG TAB PO SCH (11:50)
[2020-01-05] MEDS: HYDROcodone-ACET 5/325MG TAB PO PRN ×2 (11:51→17:36)
[2020-01-05] MEDS: CLOPIDOGREL BISULFATE 75 MG TAB PO SCH (11:51)
[2020-01-05 12:33] VITALS: BP 161/101
[2020-01-05] MEDS: AMOXICILLIN/CLAVUL 875 MG TAB PO SCH ×2 (12:44→21:17)
[2020-01-05 16:42] VITALS: BP 119/76
[2020-01-05] MEDS: DOCUSATE SOD 100 MG CAP PO PRN ×2 (17:36→21:17)
[2020-01-05] MEDS: ATORVASTATIN 20 MG TAB PO SCH (18:27)
[2020-01-05] MEDS: diphenhdrAMINE HCL 25 MG CAP PO PRN (19:46)
[2020-01-05] MEDS: ZOLPIDEM TARTRATE 5 MG TAB PO PRN (21:59)
[2020-01-05 22:00] VITALS: BP 126/88
[2020-01-06] MEDS: ACETAMINOPHEN 325 MG TAB PO PRN ×2 (02:42→10:25)
[2020-01-06 05:00] VITALS: BP 125/68
[2020-01-06 05:47] LABS: Basophils # (auto) 0.1 10 ^3/uL (0-0.2); Eosinophils # (auto) 0.3 10 ^3/uL (0-0.8); Hemoglobin 14.3 g/dL (12.2-16.2); Red Cell Distribution Width 12.4 % (11.8-14.3)
[2020-01-06 05:51] LABS: Basophils % (auto) 0.7 % (0.0-2.0); Hematocrit 40.5 % (36.0-46.0); Lymphocytes # (auto) 1.3 10 ^3/uL (0.4-5.4); Lymphocytes % (auto) 13.3 % (10.0-50.0); Mean Corpuscular Hemoglobin 34.3 pg (28.0-32.0); Mean Corpuscular Hgb Conc. 35.3 g/dL (32.0-36.0); Mean Corpuscular Volume 97.4 fL (80.0-100.0); Monocytes # (auto) 0.7 10 ^3/uL (0-1.3); Monocytes % (auto) 7.1 % (0.0-12.0); Neutrophils # (auto) 7.6 10 ^3/uL (1.6-8.6); Neutrophils % (auto) 75.9 % (37.0-80.0); Nucleated Red Blood Cells % 0.3 %; Platelet Count (auto) 256 10^3/uL (140-450); Red Blood Cells 4.16 10^6/uL (4.0-5.20)
[2020-01-06] MEDS: InsuLIN REG 1unit/0.01ml Soln (100units/ml) SC SCH ×4 (05:54→21:37)
[2020-01-06] MEDS: ACCU-CHEK COMFORT CURVE STRIP VI SCH ×4 (05:54→21:36)
[2020-01-06] MEDS: LEVOTHYROXINE SODIUM 50 MCG TAB PO SCH (05:54)
[2020-01-06 06:07] LABS: Calcium 9.2 mg/dL (8.5-10.1); Potassium 3.4 mmol/L (3.5-5.1)
[2020-01-06 06:10] LABS: BUN/Creatinine Ratio 20.3
[2020-01-06] MEDS: ONDANSETRON HCL 4 MG/2 ML VIAL IV PRN (08:51)
[2020-01-06 08:56] VITALS: BP 126/72
[2020-01-06] MEDS: ASPirin 81 mg TAB PO SCH (10:22)
[2020-01-06] MEDS: HCTZ 25 MG TAB PO SCH (10:23)
[2020-01-06] MEDS: AMOXICILLIN/CLAVUL 875 MG TAB PO SCH ×2 (10:23→21:36)
[2020-01-06] MEDS: LOSARTAN POTASSIUM 50 MG TAB PO SCH (10:23)
[2020-01-06] MEDS: FAMOTIDINE 20 MG TAB PO SCH (10:23)
[2020-01-06] MEDS: CLOPIDOGREL BISULFATE 75 MG TAB PO SCH (10:23)
[2020-01-06] MEDS: CARVEDILOL 3.125 MG TAB PO SCH ×2 (10:24→21:39)
[2020-01-06] MEDS: LORazepam 0.5 MG TAB PO PRN (10:25)
[2020-01-06] MEDS: DOCUSATE SOD 100 MG CAP PO PRN (10:25)
[2020-01-06] MEDS ORDERED: POTASSIUM CHL 10 Meq TABLET PO ONE (13:00)
[2020-01-06 13:15] VITALS: BP 115/78
[2020-01-06 16:46] VITALS: BP 117/77
[2020-01-06] MEDS: HYDROcodone-ACET 5/325MG TAB PO PRN (16:55)
[2020-01-06] MEDS: ATORVASTATIN 20 MG TAB PO SCH (17:22)
[2020-01-06 22:00] VITALS: BP 117/80
[2020-01-06] MEDS: ZOLPIDEM TARTRATE 5 MG TAB PO PRN (22:26)
[2020-01-07 05:00] VITALS: BP 116/63
[2020-01-07 05:51] LABS: Basophils # (auto) 0.1 10 ^3/uL (0-0.2); Eosinophils # (auto) 0.4 10 ^3/uL (0-0.8); Monocytes # (auto) 0.8 10 ^3/uL (0-1.3); Nucleated Red Blood Cells % 0.1 %
[2020-01-07 05:53] LABS: Basophils % (auto) 0.6 % (0.0-2.0); Eosinophils % (auto) 4.3 % (0.0-7.0); Hematocrit 42.1 % (36.0-46.0); Hemoglobin 14.6 g/dL (12.2-16.2); Lymphocytes # (auto) 1.5 10 ^3/uL (0.4-5.4); Lymphocytes % (auto) 14.7 % (10.0-50.0); Mean Corpuscular Hemoglobin 34.1 pg (28.0-32.0); Mean Corpuscular Hgb Conc. 34.8 g/dL (32.0-36.0); Mean Corpuscular Volume 98.1 fL (80.0-100.0); Monocytes % (auto) 7.4 % (0.0-12.0); Neutrophils # (auto) 7.5 10 ^3/uL (1.6-8.6); Platelet Count (auto) 260 10^3/uL (140-450); Red Blood Cells 4.29 10^6/uL (4.0-5.20); Red Cell Distribution Width 12.5 % (11.8-14.3); White Blood Cell 10.2 10^3/uL (4.4-10.8)
[2020-01-07] MEDS: InsuLIN REG 1unit/0.01ml Soln (100units/ml) SC SCH ×4 (06:06→22:00)
[2020-01-07] MEDS: ACCU-CHEK COMFORT CURVE STRIP VI SCH ×4 (06:06→23:26)
[2020-01-07] MEDS: LEVOTHYROXINE SODIUM 50 MCG TAB PO SCH (06:06)
[2020-01-07 06:13] LABS: BUN/Creatinine Ratio 17.5; Calcium 9.2 mg/dL (8.5-10.1); Potassium 3.7 mmol/L (3.5-5.1)
[2020-01-07] MEDS: HYDROcodone-ACET 5/325MG TAB PO PRN ×3 (08:13→20:30)
[2020-01-07 09:00] VITALS: BP 118/72
[2020-01-07] MEDS: FAMOTIDINE 20 MG TAB PO SCH (09:40)
[2020-01-07] MEDS: ASPirin 81 mg TAB PO SCH (09:40)
[2020-01-07] MEDS: CARVEDILOL 3.125 MG TAB PO SCH ×2 (09:40→23:26)
[2020-01-07] MEDS: AMOXICILLIN/CLAVUL 875 MG TAB PO SCH ×2 (09:40→23:25)
[2020-01-07] MEDS: CLOPIDOGREL BISULFATE 75 MG TAB PO SCH (09:40)
[2020-01-07] MEDS: HCTZ 25 MG TAB PO SCH (09:41)
[2020-01-07] MEDS: LOSARTAN POTASSIUM 50 MG TAB PO SCH (09:41)
[2020-01-07 13:00] VITALS: BP 96/65
[2020-01-07] MEDS: ALUM & MAG HYDROX-SIMETH LIQ(MAALOX) 30 ML PO PRN (13:08)
[2020-01-07] MEDS ORDERED: GADOTERIDOL 279.3mg/mL 20ml Vial IV ONE (13:37)
[2020-01-07] MEDS ORDERED: LORazepam 2MG/ML-1ML VIAL IV ONE (14:00)
[2020-01-07] MEDS: ACETAMINOPHEN 325 MG TAB PO PRN (15:33)
[2020-01-07 17:12] VITALS: BP 125/79
[2020-01-07] MEDS: ATORVASTATIN 20 MG TAB PO SCH (17:37)
[2020-01-07 22:00] VITALS: BP 122/78
[2020-01-07] MEDS: ZOLPIDEM TARTRATE 5 MG TAB PO PRN (23:26)
[2020-01-08 01:25] VITALS: BP 122/78
[2020-01-08] MEDS: HYDROcodone-ACET 5/325MG TAB PO PRN ×3 (03:06→21:34)
[2020-01-08 05:00] VITALS: BP 98/55
[2020-01-08 05:25] LABS: Eosinophils # (auto) 0.5 10 ^3/uL (0-0.8); Lymphocytes # (auto) 1.1 10 ^3/uL (0.4-5.4); Lymphocytes % (auto) 11.4 % (10.0-50.0); Monocytes # (auto) 0.7 10 ^3/uL (0-1.3); Nucleated Red Blood Cells % 0.1 %
[2020-01-08 05:27] LABS: Basophils # (auto) 0 10 ^3/uL (0-0.2); Basophils % (auto) 0.4 % (0.0-2.0); Eosinophils % (auto) 5.1 % (0.0-7.0); Hematocrit 41.5 % (36.0-46.0); Hemoglobin 14.6 g/dL (12.2-16.2); Mean Corpuscular Hemoglobin 34.5 pg (28.0-32.0); Mean Corpuscular Hgb Conc. 35.2 g/dL (32.0-36.0); Mean Corpuscular Volume 97.8 fL (80.0-100.0); Monocytes % (auto) 7.3 % (0.0-12.0); Neutrophils # (auto) 7.5 10 ^3/uL (1.6-8.6); Neutrophils % (auto) 75.8 % (37.0-80.0); Platelet Count (auto) 250 10^3/uL (140-450); Red Blood Cells 4.25 10^6/uL (4.0-5.20); Red Cell Distribution Width 12.2 % (11.8-14.3); White Blood Cell 9.9 10^3/uL (4.4-10.8)
[2020-01-08 05:46] LABS: Calcium 9.1 mg/dL (8.5-10.1); Potassium 3.3 mmol/L (3.5-5.1)
[2020-01-08 05:48] LABS: BUN/Creatinine Ratio 21.7
[2020-01-08] MEDS: InsuLIN REG 1unit/0.01ml Soln (100units/ml) SC SCH ×4 (06:43→21:33)
[2020-01-08] MEDS: LEVOTHYROXINE SODIUM 50 MCG TAB PO SCH (06:43)
[2020-01-08] MEDS: ACCU-CHEK COMFORT CURVE STRIP VI SCH ×4 (06:43→21:34)
[2020-01-08 08:00] VITALS: BP 125/80
[2020-01-08] MEDS: ONDANSETRON HCL 4 MG/2 ML VIAL IV PRN (08:33)
[2020-01-08 08:35] VITALS: BP 125/80
[2020-01-08] MEDS ORDERED: POTASSIUM CHL 20 Meq TABLET PO ONE (10:00)
[2020-01-08] MEDS: ASPirin 81 mg TAB PO SCH (10:12)
[2020-01-08] MEDS: LOSARTAN POTASSIUM 50 MG TAB PO SCH (10:12)
[2020-01-08] MEDS: HCTZ 25 MG TAB PO SCH (10:13)
[2020-01-08] MEDS: FAMOTIDINE 20 MG TAB PO SCH (10:14)
[2020-01-08] MEDS: CLOPIDOGREL BISULFATE 75 MG TAB PO SCH (10:14)
[2020-01-08 13:00] VITALS: BP 113/74
[2020-01-08 17:15] VITALS: BP 102/77
[2020-01-08] MEDS: ATORVASTATIN 20 MG TAB PO SCH (17:50)
[2020-01-08] MEDS: ZOLPIDEM TARTRATE 5 MG TAB PO PRN (22:07)
[2020-01-09 05:00] VITALS: BP 157/87
[2020-01-09] MEDS: InsuLIN REG 1unit/0.01ml Soln (100units/ml) SC SCH ×2 (06:19→11:30)
[2020-01-09] MEDS: LEVOTHYROXINE SODIUM 50 MCG TAB PO SCH (06:19)
[2020-01-09] MEDS: ACCU-CHEK COMFORT CURVE STRIP VI SCH ×2 (06:20→12:43)
[2020-01-09 06:57] LABS: Magnesium 2.5 mg/dL (1.6-2.6); Potassium 3.2 mmol/L (3.5-5.1)
[2020-01-09 08:00] VITALS: BP 140/83
[2020-01-09] MEDS: ONDANSETRON HCL 4 MG/2 ML VIAL IV PRN (08:22)
[2020-01-09] MEDS: DOCUSATE SOD 100 MG CAP PO PRN (08:22)
[2020-01-09] MEDS: HYDROcodone-ACET 5/325MG TAB PO PRN ×2 (08:23→13:40)
[2020-01-09 09:00] VITALS: BP 140/83
[2020-01-09] MEDS: ASPirin 81 mg TAB PO SCH (09:40)
[2020-01-09] MEDS: LOSARTAN POTASSIUM 50 MG TAB PO SCH (09:40)
[2020-01-09] MEDS: HCTZ 25 MG TAB PO SCH (09:40)
[2020-01-09] MEDS: FAMOTIDINE 20 MG TAB PO SCH (09:40)
[2020-01-09] MEDS: CLOPIDOGREL BISULFATE 75 MG TAB PO SCH (09:41)
[2020-01-09] MEDS ORDERED: POTASSIUM CHL 20 Meq TABLET PO ONE (11:45)
[2020-01-09] MEDS ORDERED: POTA1TAB61 PO (11:46)
[2020-01-09] MEDS ORDERED: ATOR20TA50 PO (11:46)
[2020-01-09] MEDS ORDERED: PANT40TA2 PO (11:46)
[2020-01-09] MEDS ORDERED: LEV50T PO (11:46)
[2020-01-09] MEDS ORDERED: ASPI81CH43 PO (11:46)
[2020-01-09] MEDS ORDERED: CLOP75TA28 PO (11:46)
[2020-01-09 13:00] VITALS: BP 119/86
[2020-01-09 15:00] VITALS: BP 119/80
== END 2020-01-09 16:35 | disposition home health service (06) | DRG 175 ==
LOC: ER 16:31 → TELE 16:32 → TELE-WESTW 22:45
PROVIDERS: ADMIT Hospitalist; ATTEND Internal Medicine
PROC: 4A023N7 Measurement of Cardiac Sampling and Pressure, Left Heart, Percutaneous Approach (ICD-10-PCS; 2020-01-02)
PROC: B211YZZ Fluoroscopy of Multiple Coronary Arteries using Other Contrast (ICD-10-PCS; 2020-01-02)
PROC: B215YZZ Fluoroscopy of Left Heart using Other Contrast (ICD-10-PCS; 2020-01-02)
PROC: 027 Heart and Great Vessels, Dilation (ICD-10-PCS; principal; 2020-01-04)
PROC: 4A02XM4 Measurement of Cardiac Total Activity, External Approach (ICD-10-PCS; 2020-01-07)
DX: I25.10 Atherosclerotic heart disease of native coronary artery without angina pectoris (principal); I63.9 Cerebral infarction, unspecified; I50.33 Acute on chronic diastolic (congestive) heart failure; E66.01 Morbid (severe) obesity due to excess calories; E11.9 Type 2 diabetes mellitus without complications; J32.0 Chronic maxillary sinusitis; R07.89 Other chest pain; E87.1 Hypo-osmolality and hyponatremia; F20.9 Schizophrenia, unspecified; E03.9 Hypothyroidism, unspecified; I11.0 Hypertensive heart disease with heart failure; Z68.41 Body mass index [BMI] 40.0-44.9, adult; I16.0 Hypertensive urgency; E87.6 Hypokalemia; R94.6 Abnormal results of thyroid function studies; F41.8 Other specified anxiety disorders; L30.9 Dermatitis, unspecified; E78.5 Hyperlipidemia, unspecified; E78.1 Pure hyperglyceridemia; G47.33 Obstructive sleep apnea (adult) (pediatric); J44.9 Chronic obstructive pulmonary disease, unspecified; Z79.02 Long term (current) use of antithrombotics/antiplatelets; Z79.84 Long term (current) use of oral hypoglycemic drugs; Z79.899 Other long term (current) drug therapy; Z80.0 Family history of malignant neoplasm of digestive organs; Z82.0 Family history of epilepsy and other diseases of the nervous system; Z82.49 Family history of ischemic heart disease and other diseases of the circulatory system; Z83.3 Family history of diabetes mellitus; Z86.73 Personal history of transient ischemic attack (TIA), and cerebral infarction without residual deficits; Z87.891 Personal history of nicotine dependence; Z95.5 Presence of coronary angioplasty implant and graft
CPT/HCPCS: 36415; 70450; 70553; 71045; 78452; 80048; 80053; 80061; 81001; 82565; 82962; 83036; 83605; 83735; 83880; 84132; 84439; 84443; 84481; 84484; 85025; 85610; 85730; 87040; 87804; 87880; 92928; 93005; 93017; 93306; 93458; 93886; 94660; 97110; 97116; 97163; 97530; 99152; 99153; C1725; C1874; G0378; J0153; J0696; J1815; J2250; J2405; J3480; Q9967

== ENCOUNTER 2020-01-29 13:01 | Emergency (ER) | payer MEDICAID ==
[~2020-01-29] VITALS: Ht 154.9 cm; Wt 104.3 kg
[~2020-01-29 13:01] MED LIST changes: -ALPR1TAB2 PO; +ASPI81CH43 PO; +ATOR20TA50 PO; +CHOL20007 PO; +CLOP75TA28 PO; +HCTZ25T PO; +LEV50T PO; +LOSA-69 PO; +METF-370 PO; +METO25TA5 PO; +PANT40TA2 PO; +POTA1TAB61 PO; -ZOLP10TA PO
[2020-01-29 13:22] VITALS: BP 174/105
[2020-01-29 13:45] LABS: Basophils # (auto) 0.1 10 ^3/uL (0-0.2); Basophils % (auto) 0.6 % (0.0-2.0); Eosinophils # (auto) 0.3 10 ^3/uL (0-0.8); Eosinophils % (auto) 3.2 % (0.0-7.0); Hematocrit 43.9 % (36.0-46.0); Lymphocytes # (auto) 1.4 10 ^3/uL (0.4-5.4); Lymphocytes % (auto) 14.1 % (10.0-50.0); Mean Corpuscular Hemoglobin 32.7 pg (28.0-32.0); Mean Corpuscular Hgb Conc. 34.1 g/dL (32.0-36.0); Mean Corpuscular Volume 95.8 fL (80.0-100.0); Monocytes # (auto) 0.6 10 ^3/uL (0-1.3); Monocytes % (auto) 5.5 % (0.0-12.0); Neutrophils # (auto) 7.8 10 ^3/uL (1.6-8.6); Neutrophils % (auto) 76.6 % (37.0-80.0); Nucleated Red Blood Cells % 0.1 %; Platelet Count (auto) 215 10^3/uL (140-450); Red Blood Cells 4.58 10^6/uL (4.0-5.20); Red Cell Distribution Width 12.9 % (11.8-14.3); White Blood Cell 10.2 10^3/uL (4.4-10.8)
[2020-01-29 13:58] LABS: INR 0.99 (0.9-1.15); Partial Thromboplastin Time 25.8 sec (23.64-32.05)
[2020-01-29 14:05] LABS: Albumin 3.8 g/dL (3.4-5.0); BUN/Creatinine Ratio 15.5; Calcium 9.4 mg/dL (8.5-10.1); Potassium 4.1 mmol/L (3.5-5.1)
[2020-01-29 14:10] LABS: Bilirubin, Total 1.2 mg/dL (0.2-1.0); Total Protein 8.5 g/dL (6.4-8.2)
[2020-01-29] MEDS ORDERED: methylPREDNISolone SOD SUCC 125 MG/2 ML VL IV ONE (14:45)
[2020-01-29] MEDS ORDERED: diphenhdrAMINE HCL 50 MG/1 ML VL IV ONE (14:45)
== END 2020-01-29 15:41 | disposition left against medical advice (07) ==
LOC: ER 13:01
DX: T78.40XA Allergy, unspecified, initial encounter (principal); E11.65 Type 2 diabetes mellitus with hyperglycemia; I10 Essential (primary) hypertension; J45.909 Unspecified asthma, uncomplicated; Z86.73 Personal history of transient ischemic attack (TIA), and cerebral infarction without residual deficits; Z90.49 Acquired absence of other specified parts of digestive tract; X58.XXXA Exposure to other specified factors, initial encounter
CPT/HCPCS: 36415; 71046; 80053; 83880; 84484; 85025; 85379; 85610; 85730

== ENCOUNTER 2021-04-10 18:50 | Emergency (ER) | payer MEDICAID ==
[~2021-04-10] VITALS: Ht 154.9 cm; Wt 91.2 kg
[~2021-04-10 18:50] MED LIST changes: -HCTZ25T PO; +HYDR25TA5 PO
[2021-04-10] MEDS ORDERED: MORPHINE SULFATE 4 MG/ML SYR/VIAL IV ONE (20:30)
[2021-04-10 20:37] LABS: Basophils # (auto) 0 10 ^3/uL (0-0.2); Basophils % (auto) 0.3 % (0.0-2.0); Eosinophils # (auto) 0.2 10 ^3/uL (0-0.8); Eosinophils % (auto) 2.3 % (0.0-7.0); Hematocrit 41.1 % (36.0-46.0); Hemoglobin 14.2 g/dL (12.2-16.2); Lymphocytes # (auto) 1.7 10 ^3/uL (0.4-5.4); Lymphocytes % (auto) 23.2 % (10.0-50.0); Mean Corpuscular Hemoglobin 34.4 pg (28.0-32.0); Mean Corpuscular Hgb Conc. 34.5 g/dL (32.0-36.0); Mean Corpuscular Volume 99.6 fL (80.0-100.0); Monocytes # (auto) 0.6 10 ^3/uL (0-1.3); Monocytes % (auto) 8.1 % (0.0-12.0); Neutrophils # (auto) 4.8 10 ^3/uL (1.6-8.6); Neutrophils % (auto) 66.1 % (37.0-80.0); Red Blood Cells 4.13 10^6/uL (4.0-5.20); White Blood Cell 7.2 10^3/uL (4.4-10.8)
[2021-04-10] MEDS ORDERED: CEFEPIME 2 GM in SODIUM CHL 0.9% 50 ML IV STA (20:55)
[2021-04-10 20:56] LABS: Albumin 3.4 g/dL (3.4-5.0); Anion Gap 7 (5-15); Blood Urea Nitrogen 19 mg/dL (7-18); Calcium 9.7 mg/dL (8.5-10.1); Carbon Dioxide 27 mmol/L (21-32); Chloride 105 mmol/L (98-107); Glucose 106 mg/dL (74-106); Potassium 3.1 mmol/L (3.5-5.1); Sodium 139 mmol/L (136-145)
[2021-04-10] MEDS ORDERED: VANCOMYCIN 1GM/250ML 250 ML IV ONE ×2 (21:00)
[2021-04-10 21:02] LABS: Alanine Aminotransferase 21 U/L (13-56); Alkaline Phosphatase 70 U/L (45-117); Aspartate Aminotransferase 28 U/L (15-37); BUN/Creatinine Ratio 18.6; Bilirubin, Total 0.7 mg/dL (0.2-1.0); GFR African American 72 mL/min; GFR Non-African American 60 mL/min; Total Protein 7.6 g/dL (6.4-8.2)
[2021-04-11] MEDS ORDERED: CEFEPIME 2 GM in SODIUM CHL 0.9% 50 ML IV STA (00:06)
[2021-04-11] MEDS ORDERED: MORPHINE SULFATE 4 MG/ML SYR/VIAL IV ONE (01:00)
[2021-04-11] MEDS: CEFEPIME 2 GM in SODIUM CHL 0.9% 50 ML IV SCH ×2 (01:09→06:00)
[2021-04-11] MEDS ORDERED: PIPERACILLIN-TAZO 4.5GM 100 ML IV ONE (01:45)
[2021-04-11] MEDS ORDERED: ACETAMINOPHEN 325 MG TAB PO ONE (04:30)
[2021-04-11 06:00] VITALS: BP 149/69
== END 2021-04-11 06:31 | disposition home or self-care (01) ==
LOC: ER 18:50
DX: E11.622 Type 2 diabetes mellitus with other skin ulcer (principal); L97.329 Non-pressure chronic ulcer of left ankle with unspecified severity; L03.116 Cellulitis of left lower limb; J45.909 Unspecified asthma, uncomplicated; E11.9 Type 2 diabetes mellitus without complications; I10 Essential (primary) hypertension; Z90.49 Acquired absence of other specified parts of digestive tract; Z86.73 Personal history of transient ischemic attack (TIA), and cerebral infarction without residual deficits
CPT/HCPCS: 36415; 71045; 73610; 73630; 80053; 82962; 83605; 83880; 84484; 85025; 85652; 87205; 93005; 96365; 96366; 96367; 96375; 96376; 99285; J0692; J2270; J2543; J3370

== ENCOUNTER 2022-02-17 11:15 | Emergency (ER) | payer MEDICAID ==
[~2022-02-17] VITALS: Ht 154.9 cm; Wt 88.5 kg
[2022-02-17 11:16] VITALS: BP 161/92
[2022-02-17] MEDS ORDERED: CEPH-509 PO (14:38)
[2022-02-17] MEDS ORDERED: IBUP800T27 PO (14:38)
== END 2022-02-17 14:20 | disposition home or self-care (01) ==
LOC: ER 11:15
DX: S80.812A Abrasion, left lower leg, initial encounter (principal); E11.622 Type 2 diabetes mellitus with other skin ulcer; L97.329 Non-pressure chronic ulcer of left ankle with unspecified severity; L30.9 Dermatitis, unspecified; Z20.822 Contact with and (suspected) exposure to COVID-19; X58.XXXA Exposure to other specified factors, initial encounter; Y93.89 Activity, other specified; Y92.89 Other specified places as the place of occurrence of the external cause; Y99.8 Other external cause status
CPT/HCPCS: 36415; 71045; 87804

== ENCOUNTER 2022-11-09 16:28 | Inpatient (IN) | payer MEDICAID ==
[~2022-11-09] VITALS: Ht 170.2 cm; Wt 94.0 kg
[~2022-11-09 16:28] MED LIST changes: +CEPH-509 PO; +IBUP800T27 PO
[2022-11-09 17:43] LABS: Basophils # (auto) 0 10 ^3/uL (0-0.2); Basophils % (auto) 0.4 % (0.0-2.0); Eosinophils # (auto) 0 10 ^3/uL (0-0.8); Eosinophils % (auto) 0.3 % (0.0-7.0); Hematocrit 44.6 % (36.0-46.0); Hemoglobin 15.5 g/dL (12.2-16.2); Lymphocytes # (auto) 1.6 10 ^3/uL (0.4-5.4); Lymphocytes % (auto) 15.4 % (10.0-50.0); Mean Corpuscular Hemoglobin 32.6 pg (28.0-32.0); Mean Corpuscular Hgb Conc. 34.8 g/dL (32.0-36.0); Mean Corpuscular Volume 93.6 fL (80.0-100.0); Monocytes # (auto) 0.4 10 ^3/uL (0-1.3); Monocytes % (auto) 4.4 % (0.0-12.0); Neutrophils # (auto) 8.2 10 ^3/uL (1.6-8.6); Neutrophils % (auto) 79.5 % (37.0-80.0); Red Blood Cells 4.77 10^6/uL (4.0-5.20); Red Cell Distribution Width 15.8 % (11.8-14.3); White Blood Cell 10.3 10^3/uL (4.4-10.8)
[2022-11-09 18:00] LABS: Albumin 3.9 g/dL (3.4-5.0); Calcium 9.2 mg/dL (8.5-10.1); Potassium 3.2 mmol/L (3.5-5.1)
[2022-11-09 18:04] LABS: Bilirubin, Total 1.2 mg/dL (0.2-1.0); Total Protein 8.2 g/dL (6.4-8.2)
[2022-11-09] MEDS ORDERED: MORPHINE SULFATE 4 MG/ML SYR/VIAL IV ONE (20:30)
[2022-11-09] MEDS ORDERED: ONDANSETRON HCL 4 MG/2 ML VIAL IV ONE (20:30)
[2022-11-09] MEDS ORDERED: DEXTROSE (50%) 50ML SYRG IV PRN (22:45)
[2022-11-09] MEDS ORDERED: PANTOPRAZOLE 40 MG/10 ML VIAL INJ IV ONE (22:45)
[2022-11-09] MEDS ORDERED: ONDANSETRON HCL 4 MG/2 ML VIAL IV PRN (22:45)
[2022-11-09] MEDS ORDERED: hydrALAZINE HCL 20 MG/ML VL IV PRN (23:00)
[2022-11-09 23:14] LABS: Cholesterol 189 mg/dL (< 200)
[2022-11-09 23:16] LABS: HDL Cholesterol 47 mg/dL (40-59); LDL Cholesterol 98 mg/dL (< 100); Triglycerides 379 mg/dL (< 150)
[2022-11-09 23:30] LABS: INR 0.96 (0.9-1.15)
[2022-11-10] MEDS: POTASSIUM CHL 20MEQ/100ML 100 ML IV SCH ×2 (03:53→07:32)
[2022-11-10] MEDS: SODIUM CHLORIDE 0.9% 1,000 ML IV SCH (03:53)
[2022-11-10] MEDS: MORPHINE SULFATE INJ 2 MG/ml SYRG IV PRN ×2 (05:44→22:06)
[2022-11-10 05:57] LABS: Urine Bacteria NONE SEEN /hpf (None Seen); Urine Blood Negative /uL (Negative); Urine Mucus FEW (None Seen); Urine WBC 2 /hpf (0 - 5)
[2022-11-10] MEDS: ACCU-CHEK COMFORT CURVE STRIP VI SCH ×4 (06:07→22:05)
[2022-11-10] MEDS: InsuLIN REG 1unit/0.01ml Soln (100units/ml) SC SCH ×4 (06:08→22:00)
[2022-11-10 06:11] LABS: Amphetamine Screen, Urine NEGATIVE (NEGATIVE); Barbiturate Scree,Urine NEGATIVE (NEGATIVE); Benzodiazephine Screen, Urine NEGATIVE (NEGATIVE); Cannabinoid Screen, Urine POSITIVE (NEGATIVE)
[2022-11-10 06:18] LABS: Basophils # (auto) 0.1 10 ^3/uL (0-0.2); Basophils % (auto) 0.6 % (0.0-2.0); Eosinophils # (auto) 0 10 ^3/uL (0-0.8); Eosinophils % (auto) 0.2 % (0.0-7.0); Hematocrit 44.6 % (36.0-46.0); Hemoglobin 15.1 g/dL (12.2-16.2); Lymphocytes # (auto) 2.1 10 ^3/uL (0.4-5.4); Mean Corpuscular Hgb Conc. 33.9 g/dL (32.0-36.0); Mean Corpuscular Volume 94.3 fL (80.0-100.0); Monocytes # (auto) 0.7 10 ^3/uL (0-1.3); Monocytes % (auto) 5.9 % (0.0-12.0); Neutrophils # (auto) 8.8 10 ^3/uL (1.6-8.6); Neutrophils % (auto) 75.3 % (37.0-80.0); Nucleated Red Blood Cells % 0.1 %; Red Blood Cells 4.73 10^6/uL (4.0-5.20); Red Cell Distribution Width 15.7 % (11.8-14.3); White Blood Cell 11.7 10^3/uL (4.4-10.8)
[2022-11-10 06:21] LABS: Cocaine Screen, Urine NEGATIVE (NEGATIVE); Opiate Scree,Urine POSITIVE (NEGATIVE); Phencyclidine Screen, Urine NEGATIVE (NEGATIVE)
[2022-11-10 06:23] LABS: Alcohol, Urine < 3.0 mg/dL (0-10)
[2022-11-10 06:29] LABS: Potassium 3.5 mmol/L (3.5-5.1)
[2022-11-10 06:33] LABS: Albumin 3.9 g/dL (3.4-5.0); BUN/Creatinine Ratio 16.7; Calcium 9.4 mg/dL (8.5-10.1)
[2022-11-10 06:36] LABS: Bilirubin, Total 1.9 mg/dL (0.2-1.0)
[2022-11-10] MEDS: PANTOPRAZOLE 40 MG/10 ML VIAL INJ IV SCH (07:32)
[2022-11-10] MEDS: ENOXAPARIN SOD 40 MG/0.4 ML SYRINGE SC SCH (07:32)
[2022-11-10] MEDS: HCTZ 25 MG TAB PO SCH ×2 (07:37→15:25)
[2022-11-10] MEDS: LOSARTAN POTASSIUM 50 MG TAB PO SCH ×2 (07:37→15:24)
[2022-11-10] MEDS: ASPirin 81 mg TAB PO SCH ×2 (07:37→15:24)
[2022-11-10] MEDS: METOPROLOL TARTRATE 25 MG TAB PO SCH ×2 (07:38→22:00)
[2022-11-10 11:13] LABS: Basophils # (auto) 0.1 10 ^3/uL (0-0.2); Basophils % (auto) 0.6 % (0.0-2.0); Eosinophils # (auto) 0 10 ^3/uL (0-0.8); Eosinophils % (auto) 0.3 % (0.0-7.0); Hematocrit 42.2 % (36.0-46.0); Hemoglobin 14.4 g/dL (12.2-16.2); Lymphocytes % (auto) 18.5 % (10.0-50.0); Mean Corpuscular Hemoglobin 32.6 pg (28.0-32.0); Mean Corpuscular Hgb Conc. 34.2 g/dL (32.0-36.0); Mean Corpuscular Volume 95.1 fL (80.0-100.0); Monocytes # (auto) 0.7 10 ^3/uL (0-1.3); Monocytes % (auto) 6.6 % (0.0-12.0); Neutrophils # (auto) 7.8 10 ^3/uL (1.6-8.6); Nucleated Red Blood Cells % 0.1 %; Red Blood Cells 4.43 10^6/uL (4.0-5.20); Red Cell Distribution Width 15.3 % (11.8-14.3); White Blood Cell 10.6 10^3/uL (4.4-10.8)
[2022-11-10 11:41] LABS: Calcium 8.4 mg/dL (8.5-10.1); Potassium 3.3 mmol/L (3.5-5.1)
[2022-11-10 16:43] VITALS: BP 179/92
[2022-11-10] MEDS: ATORVASTATIN 20 MG TAB PO SCH (18:10)
[2022-11-10 22:00] VITALS: BP 149/57
[2022-11-11] MEDS: SODIUM CHLORIDE 0.9% 1,000 ML IV SCH ×3 (00:33→17:39)
[2022-11-11] MEDS: InsuLIN REG 1unit/0.01ml Soln (100units/ml) SC SCH ×3 (06:21→17:00)
[2022-11-11] MEDS: ACCU-CHEK COMFORT CURVE STRIP VI SCH ×3 (06:21→19:48)
[2022-11-11 08:57] VITALS: BP 143/79
[2022-11-11] MEDS: PANTOPRAZOLE 40 MG/10 ML VIAL INJ IV SCH (10:05)
[2022-11-11] MEDS: ENOXAPARIN SOD 40 MG/0.4 ML SYRINGE SC SCH (10:06)
[2022-11-11] MEDS: LOSARTAN POTASSIUM 50 MG TAB PO SCH (10:07)
[2022-11-11] MEDS: ASPirin 81 mg TAB PO SCH (10:08)
[2022-11-11] MEDS: METOPROLOL TARTRATE 25 MG TAB PO SCH (10:08)
[2022-11-11] MEDS: HCTZ 25 MG TAB PO SCH (10:09)
[2022-11-11 13:00] VITALS: BP 140/58
[2022-11-11 14:32] VITALS: BP 143/79
[2022-11-11 16:52] VITALS: BP 149/90
[2022-11-11] MEDS: ATORVASTATIN 20 MG TAB PO SCH (18:30)
== END 2022-11-11 19:30 | disposition home or self-care (01) | DRG 254 ==
LOC: ER 16:28 → EDBD 16:28 → OVERFLOW 22:43 → WEST WING 11-10 15:04
PROVIDERS: ADMIT Nurse Practitioner Family; ATTEND Internal Medicine
DX: K42.0 Umbilical hernia with obstruction, without gangrene (principal); K56.600 Partial intestinal obstruction, unspecified as to cause; E11.65 Type 2 diabetes mellitus with hyperglycemia; E66.01 Morbid (severe) obesity due to excess calories; E87.6 Hypokalemia; F20.9 Schizophrenia, unspecified; I10 Essential (primary) hypertension; J45.909 Unspecified asthma, uncomplicated; F41.9 Anxiety disorder, unspecified; F32.A Depression, unspecified; Z20.822 Contact with and (suspected) exposure to COVID-19; Z86.73 Personal history of transient ischemic attack (TIA), and cerebral infarction without residual deficits; Z80.0 Family history of malignant neoplasm of digestive organs; Z82.0 Family history of epilepsy and other diseases of the nervous system; Z83.3 Family history of diabetes mellitus; Z68.32 Body mass index [BMI] 32.0-32.9, adult
CPT/HCPCS: 36415; 71045; 74176; 80048; 80053; 80061; 80307; 80329; 81001; 82962; 83036; 83605; 83690; 84443; 85025; 85610; 87426; 93005; 93306; 96374; 96375; 97110; 97116; 97163; 97530; C9113; G0378; J1815; J2405; J3480

== ENCOUNTER 2023-04-22 00:50 | Inpatient (IN) | payer MEDICAID ==
[~2023-04-22] VITALS: Ht 154.9 cm; Wt 93.5 kg
[~2023-04-22 00:50] MED LIST changes: +IBUP-1456 PO; -IBUP800T27 PO; -LOSA-69 PO; +LOSA50TA46 PO
[2023-04-22 01:31] LABS: Basophils # (auto) 0 10 ^3/uL (0-0.2); Basophils % (auto) 0.8 % (0.0-2.0); Eosinophils # (auto) 0.1 10 ^3/uL (0-0.8); Eosinophils % (auto) 2.1 % (0.0-7.0); Hematocrit 40.4 % (36.0-46.0); Hemoglobin 13.7 g/dL (12.2-16.2); Lymphocytes # (auto) 2.4 10 ^3/uL (0.4-5.4); Lymphocytes % (auto) 51.9 % (10.0-50.0); Mean Corpuscular Hgb Conc. 33.9 g/dL (32.0-36.0); Mean Corpuscular Volume 97.6 fL (80.0-100.0); Monocytes # (auto) 0.3 10 ^3/uL (0-1.3); Monocytes % (auto) 5.6 % (0.0-12.0); Neutrophils # (auto) 1.8 10 ^3/uL (1.6-8.6); Neutrophils % (auto) 39.6 % (37.0-80.0); Nucleated Red Blood Cells % 0.2 %; Red Blood Cells 4.14 10^6/uL (4.0-5.20); Red Cell Distribution Width 15.9 % (11.8-14.3); White Blood Cell 4.7 10^3/uL (4.4-10.8)
[2023-04-22 01:48] LABS: Albumin 3.6 g/dL (3.4-5.0); BUN/Creatinine Ratio 10.4 (10.0-20.0); Calcium 8.7 mg/dL (8.5-10.1); Potassium 3.8 mmol/L (3.5-5.1)
[2023-04-22 01:51] LABS: Bilirubin, Total 0.4 mg/dL (0.2-1.0); Total Protein 7.4 g/dL (6.4-8.2)
[2023-04-22 02:00] VITALS: PULSE 75; RESP 18; O2SAT 95
[2023-04-22 02:02] LABS: Urine WBC None Seen /hpf (0 - 5)
[2023-04-22 02:38] LABS: Urine Bacteria FEW /hpf (None Seen); Urine Blood Negative /uL (Negative); Urine Mucus FEW (None Seen); Urine Specific Gravity 1.005 (1.001-1.035)
[2023-04-22] MEDS ORDERED: DEXTROSE (50%) 50ML SYRG IV PRN (03:45)
[2023-04-22] MEDS ORDERED: ONDANSETRON HCL 4 MG/2 ML VIAL IV PRN (03:45)
[2023-04-22] MEDS ORDERED: NITROGLYCERIN 0.4 MG SL TAB SL PRN (03:45)
[2023-04-22] MEDS: ACCU-CHEK COMFORT CURVE STRIP VI SCH ×5 (04:00→20:29)
[2023-04-22] MEDS: InsuLIN REG 1unit/0.01ml Soln (100units/ml) SC SCH ×5 (04:00→20:35)
[2023-04-22 04:23] LABS: Basophils # (auto) 0 10 ^3/uL (0-0.2); Eosinophils # (auto) 0.1 10 ^3/uL (0-0.8); Hematocrit 38.6 % (36.0-46.0); Hemoglobin 13.1 g/dL (12.2-16.2); Mean Corpuscular Hemoglobin 33.5 pg (28.0-32.0); Mean Corpuscular Volume 98.5 fL (80.0-100.0); Monocytes # (auto) 0.2 10 ^3/uL (0-1.3); Monocytes % (auto) 5.6 % (0.0-12.0); Neutrophils # (auto) 1.6 10 ^3/uL (1.6-8.6); Neutrophils % (auto) 41.4 % (37.0-80.0); Red Blood Cells 3.92 10^6/uL (4.0-5.20)
[2023-04-22 04:39] LABS: Potassium 3.8 mmol/L (3.5-5.1)
[2023-04-22 04:44] LABS: Albumin 3.4 g/dL (3.4-5.0); BUN/Creatinine Ratio 11.1 (10.0-20.0); Bilirubin, Total 0.5 mg/dL (0.2-1.0); Calcium 8.5 mg/dL (8.5-10.1); Total Protein 7.2 g/dL (6.4-8.2)
[2023-04-22] MEDS: SODIUM CHLOR 0.9% PF (SALINE LOCK) 10ML VIAL/SYR IV SCH ×3 (06:12→22:10)
[2023-04-22] MEDS: LEVOTHYROXINE SODIUM 50 MCG TAB PO SCH (07:07)
[2023-04-22 08:00] VITALS: PULSE 68; RESP 10; O2SAT 97
[2023-04-22] MEDS: HYDROcodone-ACET 5/325MG TAB PO PRN (08:07)
[2023-04-22 10:24] LABS: Basophils # (auto) 0 10 ^3/uL (0-0.2); Eosinophils # (auto) 0.1 10 ^3/uL (0-0.8); Eosinophils % (auto) 1.7 % (0.0-7.0); Hematocrit 42.2 % (36.0-46.0); Hemoglobin 14.2 g/dL (12.2-16.2); Lymphocytes # (auto) 1.5 10 ^3/uL (0.4-5.4); Lymphocytes % (auto) 39.4 % (10.0-50.0); Mean Corpuscular Hemoglobin 32.9 pg (28.0-32.0); Mean Corpuscular Hgb Conc. 33.6 g/dL (32.0-36.0); Mean Corpuscular Volume 97.9 fL (80.0-100.0); Monocytes # (auto) 0.3 10 ^3/uL (0-1.3); Monocytes % (auto) 6.8 % (0.0-12.0); Neutrophils % (auto) 51.1 % (37.0-80.0); Nucleated Red Blood Cells % 0.1 %; Red Blood Cells 4.31 10^6/uL (4.0-5.20); Red Cell Distribution Width 16.2 % (11.8-14.3); White Blood Cell 3.9 10^3/uL (4.4-10.8)
[2023-04-22] MEDS: ASPirin 81 mg TAB PO SCH (10:36)
[2023-04-22] MEDS: CLOPIDOGREL BISULFATE 75 MG TAB PO SCH (10:36)
[2023-04-22 10:39] LABS: BUN/Creatinine Ratio 12.3 (10.0-20.0); Calcium 8.9 mg/dL (8.5-10.1); Potassium 4.3 mmol/L (3.5-5.1)
[2023-04-22] MEDS ORDERED: hydrALAZINE HCL 20 MG/ML VL IV PRN ×2 (15:15→17:00)
[2023-04-22] MEDS ORDERED: LISI20TA56 PO (16:06)
[2023-04-22] MEDS ORDERED: METO-289 PO (16:06)
[2023-04-22] MEDS ORDERED: SUCRALFATE 1 GM/10 ML ORAL SUSP PO ONE (16:15)
[2023-04-22] MEDS: MORPHINE SULFATE INJ 2 MG/ml SYRG IV PRN ×2 (16:18→17:23)
[2023-04-22] MEDS ORDERED: IOHEXOL 350 MG/ML 100ML IJ ONE (16:42)
[2023-04-22] MEDS ORDERED: LORazepam 2MG/ML-1ML VIAL ONE (17:13)
[2023-04-22] MEDS: LORazepam 2MG/ML-1ML VIAL IV PRN (17:13)
[2023-04-22 19:08] VITALS: BP 164/93; PULSE 113; RESP 17; TEMP 98.2; O2SAT 97
[2023-04-22] MEDS ORDERED: cloNIDine HCL 0.1 MG TAB PO PRN (19:15)
[2023-04-22 20:00] VITALS: PULSE 109; RESP 15; O2SAT 95
[2023-04-22] MEDS: ATORVASTATIN 20 MG TAB PO SCH (22:12)
[2023-04-23] VITALS (13 sets, daily range): BP systolic 124–171; BP diastolic 75–101; PULSE 56–110; RESP 11–16; TEMP 97.3–98.4; O2SAT 94–100
[2023-04-23] MEDS: InsuLIN REG 1unit/0.01ml Soln (100units/ml) SC SCH ×6 (02:00→21:40)
[2023-04-23] MEDS: ACCU-CHEK COMFORT CURVE STRIP VI SCH ×6 (02:00→21:39)
[2023-04-23] MEDS ORDERED: HEPARIN SODIUM (PORCINE) 5000 UNITS/ML 1ML VIAL IV ONE (04:00)
[2023-04-23] MEDS ORDERED: HEPARIN DRIP/D5W 100UNITS/ML 250 ML IV SCH (04:00)
[2023-04-23 06:12] LABS: Basophils # (auto) 0 10 ^3/uL (0-0.2); Basophils % (auto) 0.6 % (0.0-2.0); Eosinophils # (auto) 0.1 10 ^3/uL (0-0.8); Hematocrit 37.9 % (36.0-46.0); Hemoglobin 12.7 g/dL (12.2-16.2); Lymphocytes # (auto) 1.1 10 ^3/uL (0.4-5.4); Lymphocytes % (auto) 17.7 % (10.0-50.0); Mean Corpuscular Hemoglobin 33.1 pg (28.0-32.0); Mean Corpuscular Hgb Conc. 33.4 g/dL (32.0-36.0); Mean Corpuscular Volume 98.9 fL (80.0-100.0); Monocytes # (auto) 0.4 10 ^3/uL (0-1.3); Neutrophils # (auto) 4.5 10 ^3/uL (1.6-8.6); Neutrophils % (auto) 74.7 % (37.0-80.0); Nucleated Red Blood Cells % 0.1 %; Red Blood Cells 3.83 10^6/uL (4.0-5.20); Red Cell Distribution Width 15.5 % (11.8-14.3)
[2023-04-23 06:26] LABS: Partial Thromboplastin Time 27.1 SEC (24.5-34.5)
[2023-04-23 06:38] LABS: Calcium 8.9 mg/dL (8.5-10.1); Potassium 3.8 mmol/L (3.5-5.1)
[2023-04-23 06:44] LABS: Albumin 3.1 g/dL (3.4-5.0); BUN/Creatinine Ratio 23.2 (10.0-20.0); Bilirubin, Total 1.2 mg/dL (0.2-1.0); Total Protein 6.2 g/dL (6.4-8.2)
[2023-04-23] MEDS: LEVOTHYROXINE SODIUM 50 MCG TAB PO SCH (07:00)
[2023-04-23] MEDS: SODIUM CHLOR 0.9% PF (SALINE LOCK) 10ML VIAL/SYR IV SCH ×3 (07:00→22:36)
[2023-04-23] MEDS: ASPirin 81 mg TAB PO SCH (09:46)
[2023-04-23] MEDS: CLOPIDOGREL BISULFATE 75 MG TAB PO SCH (09:46)
[2023-04-23] MEDS ORDERED: CLOPIDOGREL 300 MG TAB PO ONE (10:00)
[2023-04-23] MEDS ORDERED: diphenhdrAMINE HCL 50 MG/1 ML VL IV ONE (10:15)
[2023-04-23] MEDS ORDERED: HEPARIN SODIUM (PORCINE) 5000 UNITS/ML 1ML VIAL ONE (10:37)
[2023-04-23] MEDS ORDERED: MIDAZOLAM HCL 2MG/2ML 2ml VIAL (1mg/ml) ONE (10:38)
[2023-04-23] MEDS ORDERED: fentaNYL CITRATE 100 MCG/2 ML VL ONE (10:38)
[2023-04-23] MEDS ORDERED: IODIXANOL 320MG/ML 100ML BTL IV ONE ×3 (10:39→11:20)
[2023-04-23] MEDS ORDERED: LIDOCAINE 2%HCL (LOCAL ANESTH.) INJ 20ML MDV ONE (10:39)
[2023-04-23] MEDS ORDERED: VERAPAMIL 2.5MG/ML INJ 2ML VIAL IV ONE (10:39)
[2023-04-23] MEDS ORDERED: FUROSEMIDE 20 MG/2 ML VIAL ONE (11:16)
[2023-04-23] MEDS: HYDROcodone-ACET 5/325MG TAB PO PRN ×2 (13:02→22:32)
[2023-04-23] MEDS: METOPROLOL SUCCINATE XL 50 MG TAB PO SCH (13:02)
[2023-04-23] MEDS: LISINOPRIL 20 MG TAB PO SCH (13:03)
[2023-04-23] MEDS: ATORVASTATIN 20 MG TAB PO SCH (22:32)
[2023-04-24] VITALS (10 sets, daily range): BP systolic 118–149; BP diastolic 70–88; PULSE 51–61; RESP 14–17; TEMP 97.8–98.3; O2SAT 94–100
[2023-04-24] MEDS: InsuLIN REG 1unit/0.01ml Soln (100units/ml) SC SCH ×6 (01:47→22:00)
[2023-04-24] MEDS: ACCU-CHEK COMFORT CURVE STRIP VI SCH ×5 (01:47→22:15)
[2023-04-24] MEDS: LEVOTHYROXINE SODIUM 50 MCG TAB PO SCH (07:04)
[2023-04-24] MEDS: HYDROcodone-ACET 5/325MG TAB PO PRN ×2 (07:04→22:30)
[2023-04-24] MEDS: SODIUM CHLOR 0.9% PF (SALINE LOCK) 10ML VIAL/SYR IV SCH ×3 (07:08→22:15)
[2023-04-24] MEDS: LISINOPRIL 20 MG TAB PO SCH (09:40)
[2023-04-24] MEDS: ASPirin 81 mg TAB PO SCH (09:40)
[2023-04-24] MEDS: METOPROLOL SUCCINATE XL 50 MG TAB PO SCH (09:41)
[2023-04-24] MEDS: CLOPIDOGREL BISULFATE 75 MG TAB PO SCH (09:41)
[2023-04-24] MEDS: ACETAMINOPHEN 325 MG TAB PO PRN (16:50)
[2023-04-24] MEDS: ATORVASTATIN 20 MG TAB PO SCH (22:15)
[2023-04-24] MEDS: LORazepam 2MG/ML-1ML VIAL IV PRN (22:16)
[2023-04-24] MEDS: DOCUSATE SOD 100 MG CAP PO PRN (22:39)
[2023-04-25] VITALS (7 sets, daily range): BP systolic 125–151; BP diastolic 78–98; PULSE 49–74; RESP 16–18; TEMP 97.2–98; O2SAT 97–99
[2023-04-25] MEDS: LEVOTHYROXINE SODIUM 50 MCG TAB PO SCH (05:26)
[2023-04-25] MEDS: ACETAMINOPHEN 325 MG TAB PO PRN (05:27)
[2023-04-25] MEDS: ACCU-CHEK COMFORT CURVE STRIP VI SCH ×3 (05:27→17:00)
[2023-04-25] MEDS: InsuLIN REG 1unit/0.01ml Soln (100units/ml) SC SCH ×3 (05:28→17:00)
[2023-04-25] MEDS: SODIUM CHLOR 0.9% PF (SALINE LOCK) 10ML VIAL/SYR IV SCH ×2 (05:28→11:56)
[2023-04-25] MEDS ORDERED: ATORVASTATIN 20 MG TAB PO SCH (07:45)
[2023-04-25 08:22] LABS: Basophils # (auto) 0 10 ^3/uL (0-0.2); Basophils % (auto) 0.6 % (0.0-2.0); Eosinophils # (auto) 0.1 10 ^3/uL (0-0.8); Eosinophils % (auto) 1.9 % (0.0-7.0); Hematocrit 37.8 % (36.0-46.0); Hemoglobin 12.7 g/dL (12.2-16.2); Lymphocytes # (auto) 1.3 10 ^3/uL (0.4-5.4); Lymphocytes % (auto) 22.5 % (10.0-50.0); Mean Corpuscular Hgb Conc. 33.6 g/dL (32.0-36.0); Mean Corpuscular Volume 98.3 fL (80.0-100.0); Monocytes # (auto) 0.4 10 ^3/uL (0-1.3); Monocytes % (auto) 7.8 % (0.0-12.0); Neutrophils # (auto) 3.9 10 ^3/uL (1.6-8.6); Neutrophils % (auto) 67.2 % (37.0-80.0); Nucleated Red Blood Cells % 0.1 %; Red Blood Cells 3.85 10^6/uL (4.0-5.20); Red Cell Distribution Width 15.4 % (11.8-14.3); White Blood Cell 5.7 10^3/uL (4.4-10.8)
[2023-04-25 08:43] LABS: BUN/Creatinine Ratio 24.6 (10.0-20.0); Calcium 9.1 mg/dL (8.5-10.1); Potassium 3.8 mmol/L (3.5-5.1)
[2023-04-25] MEDS: LISINOPRIL 20 MG TAB PO SCH (09:05)
[2023-04-25] MEDS: CLOPIDOGREL BISULFATE 75 MG TAB PO SCH (09:06)
[2023-04-25] MEDS: ASPirin 81 mg TAB PO SCH (09:06)
[2023-04-25] MEDS: METOPROLOL SUCCINATE XL 50 MG TAB PO SCH (09:06)
[2023-04-25] MEDS ORDERED: APIX5TAB PO (10:52)
[2023-04-25] MEDS: DOCUSATE SOD 100 MG CAP PO PRN (11:56)
== END 2023-04-25 18:40 | disposition home or self-care (01) | DRG 190 ==
LOC: ER 00:50 → EDBD 00:50 → TELE 03:39 → TELE-CENTR 21:26
PROVIDERS: ADMIT Internal Medicine; ATTEND Student in an Organized Health Care Education/Training Program
PROC: B211YZZ Fluoroscopy of Multiple Coronary Arteries using Other Contrast (ICD-10-PCS; principal; 2023-04-23)
PROC: 4A023N7 Measurement of Cardiac Sampling and Pressure, Left Heart, Percutaneous Approach (ICD-10-PCS; 2023-04-23)
PROC: 5A09357 Assistance with Respiratory Ventilation, Less than 24 Consecutive Hours, Continuous Positive Airway Pressure (ICD-10-PCS; 2023-04-23)
DX: I21.4 Non-ST elevation (NSTEMI) myocardial infarction (principal); G45.9 Transient cerebral ischemic attack, unspecified; E11.9 Type 2 diabetes mellitus without complications; I69.854 Hemiplegia and hemiparesis following other cerebrovascular disease affecting left non-dominant side; F20.9 Schizophrenia, unspecified; I10 Essential (primary) hypertension; Z68.38 Body mass index [BMI] 38.0-38.9, adult; E03.9 Hypothyroidism, unspecified; E66.01 Morbid (severe) obesity due to excess calories; F41.9 Anxiety disorder, unspecified; F32.A Depression, unspecified; J45.909 Unspecified asthma, uncomplicated; G47.33 Obstructive sleep apnea (adult) (pediatric); E78.5 Hyperlipidemia, unspecified; I16.1 Hypertensive emergency; F40.240 Claustrophobia; I25.10 Atherosclerotic heart disease of native coronary artery without angina pectoris; Z98.61 Coronary angioplasty status; Z91.199 Patient's noncompliance with other medical treatment and regimen due to unspecified reason; Z90.49 Acquired absence of other specified parts of digestive tract; Z80.0 Family history of malignant neoplasm of digestive organs; Z82.0 Family history of epilepsy and other diseases of the nervous system; Z83.3 Family history of diabetes mellitus; Z82.49 Family history of ischemic heart disease and other diseases of the circulatory system; Z79.82 Long term (current) use of aspirin; Z79.02 Long term (current) use of antithrombotics/antiplatelets; Z79.899 Other long term (current) drug therapy; I25.2 Old myocardial infarction; Z91.148 Patient's other noncompliance with medication regimen for other reason; Z79.84 Long term (current) use of oral hypoglycemic drugs; Z87.891 Personal history of nicotine dependence
CPT/HCPCS: 36415; 70450; 71045; 71275; 80048; 80053; 81001; 82962; 83036; 83880; 84443; 84484; 84702; 85025; 85610; 85730; 86850; 86900; 86901; 93005; 93306; 93458; 93886; 94660; 97110; 97116; 97163; 97530; 99152; G0378; J1815; J2250; J2405; Q9967